=== PATIENT | female | born 1970 | race Caucasian/White ===

== ENCOUNTER → 2020-05-27 09:45 | Outpatient (BNVA) | payer MEDICARE, MEDICAID, SELFPAY | PROVIDERS: PCP Internal Medicine Geriatric Medicine; Referring Provider Internal Medicine Geriatric Medicine; Visit Provider Nurse Practitioner | DX: R10.13 Epigastric pain (principal); K75.81 Nonalcoholic steatohepatitis (NASH); K21.9 Gastro-esophageal reflux disease without esophagitis; A04.8 Other specified bacterial intestinal infections; B37.9 Candidiasis, unspecified | CPT/HCPCS: 99214 ==

== ENCOUNTER 2020-09-12 08:28 | Outpatient (REF) | payer OTHER, SELFPAY ==
--- NOTE | 2020-09-12 08:34 | US_ITS ---
EXAMINATION: US ABDOMEN LIMITED CLINICAL INFORMATION: Nonalcoholic steatohepatitis. COMPARISON: Ultrasound abdomen complete 01/15/2020. TECHNIQUE: Real-time imaging of the right upper quadrant abdominal viscera. FINDINGS: PANCREAS: The head and part of the body the pancreas is homogeneous in echotexture. Rest of pancreas is not visualized. LIVER: The liver is normal size and normal contour with increased echogenicity. There are areas of focal fatty. No focal mass or intrahepatic ductal dilatation seen. GALLBLADDER: There are no echogenic calculi or wall thickening. There is an echogenic nonmobile polyp measuring 0.3 x 0.3 cm. COMMON BILE DUCT: Normal in caliber measuring 0.3 cm in diameter. RIGHT KIDNEY: Normal. No hydronephrosis. No renal calculi or focal parenchymal lesions. The kidney measures 10.1 cm in maximum dimension. FREE FLUID: None. US/US abdomen limited IMPRESSION: Hepatic steatosis with areas of focal fatty sparing. No focal solid lesion seen. No change from previous study Small nonmobile gallbladder polyp, unchanged to previous study 01/15/2020.
== END 2020-09-12 08:29 | disposition home or self-care (01) ==
LOC: HO.US 08:28
PROVIDERS: PCP Internal Medicine Geriatric Medicine; Visit Provider Nurse Practitioner
DX: K75.81 Nonalcoholic steatohepatitis (NASH) (principal)
CPT/HCPCS: 76705

== ENCOUNTER → 2020-09-16 11:44 | Outpatient (BNVA) | payer OTHER, SELFPAY | PROVIDERS: PCP Internal Medicine Geriatric Medicine; Visit Provider Nurse Practitioner | CPT/HCPCS: Q3014 ==

== ENCOUNTER → 2020-10-24 10:52 | Outpatient (BNVA) | payer OTHER, SELFPAY | PROVIDERS: PCP Internal Medicine Geriatric Medicine; Visit Provider Nurse Practitioner | DX: Z13.89 Encounter for screening for other disorder (principal) | CPT/HCPCS: 99212 ==

== ENCOUNTER → 2020-11-07 10:59 | Outpatient (BNVA) | payer OTHER, SELFPAY | PROVIDERS: PCP Internal Medicine Geriatric Medicine; Visit Provider Nurse Practitioner | DX: R10.13 Epigastric pain (principal); K58.0 Irritable bowel syndrome with diarrhea; K75.81 Nonalcoholic steatohepatitis (NASH); K21.9 Gastro-esophageal reflux disease without esophagitis; A04.8 Other specified bacterial intestinal infections | CPT/HCPCS: Q3014 ==

== ENCOUNTER 2020-11-12 14:44 | Outpatient (REF) | payer OTHER, SELFPAY ==
[2020-11-12 17:02] LABS: MANUAL DIFF FLAG NO
[2020-11-12 17:09] LABS: Basophils Percent Auto 0.4 % (0-2); Eosinophils Absolute Auto 0.5 X10*3/uL (0.0-0.4); Eosinophils Percent Auto 4.4 % (0-4); Hematocrit 41.4 % (37-47); Hemoglobin 12.9 g/dl (12.0-16.0); Imm Gran Abs Auto 0.05 X10*3/uL (0.00-0.03); Imm Gran Pct Auto 0.5 % (0.0-0.4); Lymphocytes Absolute Auto 3.1 X10*3/uL (1.2-4.9); Lymphocytes Percent Auto 30.3 % (20-40); Mean Corpuscular HGB Conc 31.2 g/dl (31.0-35.0); Mean Corpuscular Volume 80.4 fL (80-98); Mean Platelet Volume 11.1 fL (9.4-12.3); Monocytes Absolute Auto 0.7 X10*3/uL (0.1-1.2); Neutrophils Absolute Auto 5.9 X10*3/uL (2.0-8.3); Neutrophils Percent Auto 57.4 % (45-73); Platelet Count 326 X10*3/uL (160-400); Red Blood Count 5.15 X10*6/uL (4.20-5.50); Red Cell Distribution Width 14.1 % (11.0-16.0); White Blood Count 10.3 X10*3/uL (4.8-10.8)
[2020-11-12 18:01] LABS: Alanine Aminotransferase 25 U/L (0-31); Albumin Level 4.5 g/dL (3.5-5.0); Alkaline Phosphatase 134 U/L (39-117); Amylase 55 U/L (28-100); Anion Gap 12 (12-20); Aspartate Amino Transferase 19 U/L (5-31); Bilirubin Total 0.4 mg/dL (0.0-1.0); Blood Urea Nitrogen 20 mg/dL (9-16); C Reactive Protein 0.19 mg/dL (< or = 0.50); Calcium 9.4 mg/dL (8.4-10.2); Carbon Dioxide 27 mmol/L (22-29); Chloride 106 mmol/L (96-108); Estimated Glomerular Filt Rate > 60; Glucose Random 113 mg/dL (60-115); Lipase 28 U/L (8-78); Potassium 4.2 mmol/L (3.3-5.1); Sodium 141 mmol/L (135-145); Total Protein 7.4 g/dL (6.5-8.0)
[2020-11-12 18:22] LABS: Vitamin D 25-OH Total 15.7 ng/mL (>30)
[2020-11-12 18:34] LABS: Folate 12.3 ng/mL (> or = 4.0); Vitamin B12 248 pg/mL (200-900)
[2020-11-12 19:58] LABS: Leukocytes Stool Qualitative NEGATIVE (NEGATIVE)
[2020-11-13 11:47] LABS: Alpha Fetoprotein 1.4 ng/mL
[2020-11-14 14:12] LABS: Immunoglobulin A 261 mg/dL (47-310)
[2020-11-14 20:18] LABS: Transglutaminase Ab IgG 2 U/mL; Transglutaminase IgA 1 U/mL
[2020-11-15 14:42] LABS: Gliadin Deamidated IgA Ab 4 Units; Gliadin Deamidated IgG Ab 1 Units
[2020-11-16 00:42] LABS: Zinc 91 mcg/dL (60-130)
== END 2020-11-12 14:45 | disposition home or self-care (01) ==
LOC: HO.LAB 14:44
PROVIDERS: Nurse Practitioner; PCP Internal Medicine Geriatric Medicine; Visit Provider Internal Medicine Gastroenterology
DX: K58.0 Irritable bowel syndrome with diarrhea (principal); M79.7 Fibromyalgia; K21.9 Gastro-esophageal reflux disease without esophagitis; A04.8 Other specified bacterial intestinal infections; K75.81 Nonalcoholic steatohepatitis (NASH); Z79.899 Other long term (current) drug therapy
CPT/HCPCS: 36415; 80053; 82105; 82150; 82306; 82607; 82746; 82784; 83516; 83690; 84443; 84630; 85025; 86140; 89055; 99212

== ENCOUNTER → 2020-11-13 08:04 | Outpatient (REF) | payer OTHER, SELFPAY ==
--- NOTE | ~2020-11-13 | NM_ITS ---
EXAMINATION: BILIARY TRACT IMAGING STUDY WITH CCK CLINICAL INFORMATION: Epigastric pain.. COMPARISON: No previous biliary scan is available for comparison. Abdominal ultrasound dated 09/12/2020 is available for comparison.. TECHNIQUE: Serial gamma scintillation camera images were obtained over the abdomen for a total observation period of 90 minutes following the intravenous administration of 5 mCi Tc-99m Mebrofenin. FINDINGS: There is good concentration of activity in the liver by 5 minutes post injection. Biliary activity is visualized by 10 minutes. The gallbladder is well visualized by 15 minutes. Small bowel is well visualized by 30 minutes. At 6 minutes post radiopharmaceutical injection, a 30-minute infusion of 1.1 micrograms Sincalide was then begun and an additional 40 minutes of images were obtained. There is good emptying of the gallbladder. By the end of the study there is good clearance of activity from the liver and visualization of diffuse small bowel activity. The calculated gallbladder ejection fraction is 71% (normal gallbladder ejection fraction is greater than 35%). NM/NM hepatobiliary w pharm IMPRESSION: Visualization of the gallbladder is evidence of a patent cystic duct and strong evidence against the diagnosis of acute cholecystitis. The common bile duct is patent. Gallbladder emptying and ejection fraction are normal. Liver function appears normal.
== END ==
LOC: HO.NUCMED 08:04
PROVIDERS: Visit Provider Nurse Practitioner
DX: R10.13 Epigastric pain (principal); K58.0 Irritable bowel syndrome with diarrhea
CPT/HCPCS: 78227; A9537

== ENCOUNTER 2020-11-29 08:02 | Day surgery (SDC) | payer OTHER, SELFPAY ==
[2020-11-29 09:03] VITALS: BMI 26.1
[2020-11-29 09:21] VITALS: BP 123/76; PULSE 69; RESP 16; TEMP 36.8; O2SAT 100
--- NOTE | 2020-11-29 09:25 | P.OP_ITS ---
Operative Note Operative Note Date of Service: 11/29/20 Narrative: Pre-op diagnosis: Colon cancer screening, Abdominal pain, chronic diarrhea Post-op diagnosis: other (Gastritis, colon polyps, diverticulosis.) Procedure: FLEXIBLE TRANSORAL UPPER GASTROINTESTINAL ENDOSCOPY WITH BIOPSY AND COLONOSCOPY TO CECUM WITH BIOPSIES AND SNARE POLYPECTOMY UPPER ENDOSCOPY Consent: Indications for the procedure and potential complications of bleeding, perforation, reaction to medications and missed diagnosis were discussed with the patient and informed consent was obtained. Instrument: Olympus GIF H 190 mid size upper endoscope Monitoring: Vital signs and clinical assessment, continuous EKG monitoring, Pulse oximetry, Carbon Dioxide monitoring and blood pressure monitoring were done throughout the procedure. Procedure: The patient was placed in the left lateral decubitis position and pre-procedure medications were administered and a bite block was placed. The endoscope was inserted into the mouth and advanced under direct vision to the third part of duodenum. A careful inspection was made as the upper endoscope was withdrawn including a retroflexed examination of the proximal stomach; Findings and interventions are described below. Findings: Larynx: Normal Esophagus: Tortuous esophagus with increased tertiary contractions without stricture or ring. GE junction at 35 cms. No esophagitis or Feldman's. Stomach: Moderate diffuse gastric erythema. Biopsies were obtained from the gastric body and antrum. Grade 2 flap valve on retroflexed examination of the cardia. Duodenum: Normal bulb and descending duodenum Intervention: Biopsies as noted above COLONOSCOPY PROCEDURE NOTE Consent: Indications for the procedure and potential complications of bleeding, perforation, reaction to medications and missed diagnosis were discussed with the patient and informed consent was obtained. Instrument: Olympus PCF H 190 L variable stiffness pediatric colonoscope Monitoring: Vital signs and clinical assessment, intermittent blood pressure monitoring, continuous EKG monitoring, Pulse oximetry and Carbon Dioxide monitoring were done throughout the procedure. Colon withdrawl time was 19 minutes. Procedure: The patient was placed in the left lateral decubitis position and pre-procedure medications were administered. After a digital rectal examination of the ano-rectum, the video colonoscope was inserted into the rectum and advanced through the colon to the cecum. The colonoscope was slowly withdrawn in a retrograde panoramic fashion and the colon mucosa was carefully examined including a retroflexed view of the rectum. Findings and interventions are described below. Procedure Difficulty: : Without difficulty. Colon was tortuous and there was spasm throughout the colon Findings: Terminal Ileum: Distal 15 cm was examined and appeared normal - random biopsies were obtained Cecum: Two 3-4 mm diminutive appearing polyps removed with the cold biopsy Ascending Colon: Moderate diverticulosis Transverse Colon: Moderate diverticulosis Descending Colon: Moderate diverticulosis Sigmoid Colon: Moderate diverticulosis Rectum: 7-8 mm sessile polyp removed with a cold snare Ano-rectum: Normal Colon preparation: Fair despite copious irrigation - pt only took 3 glasses of Miralax prep due to nausea Impression and Post Procedure Diagnosis: Endoscopy Findings: ESOPHAGUS: Tortuous esophagus with increased tertiary contractions without stricture or ring. GE junction at 35 cms. No esophagitis or Feldman's. STOMACH: Moderate diffuse gastric erythema. Biopsies were obtained from the gastric body and antrum. DUODENUM: Normal - biopsied to check for celiac sprue Colonoscopy Findings: Three small polyps removed. Random biopsies were obtained from the TI, right and left colon Moderate diverticulosis seen in the entire colon Plan: Await pathology results Patient has an appointment on 12/16/20 in the [facility] with Edilberto Sosa M.D.. Repeat Colonoscopy interval based on path results - in 3 years due to fair prep. Above findings were reviewed with the patient and Gastritis, colon polyps and diverticulosis handouts were given in the discharge area Surgeon: Edilberto Sosa MD Anesthesia: MAC (Kael Burgos CRNA) Yeast Fermentation Attendant: Robert Landeros Estimated blood loss (mL): 0 Pathology: other (A- SMALL BOWEL BXS R/O CELIAC B- GASTRIC ANTRUM BXS R/O H.PYLORI C- GASTRIC BODY BXS D- CECAL POLYPS E- TI BXS R/O CROHN'S F- RANDOM RIGHT SIDE COLON BXS R/O IBD / MICRO) Condition: stable Disposition: PACU
--- NOTE | 2020-11-29 09:25 | MHC.SHP ---
Pre-Procedural Eval Section A The patient is an INPATIENT: No Changes since office visit: Yes Patient answered all questions; No Cold of Flu in the past 2 weeks, No New Medical Problems and No Changes in Medication The History & Physical has been completed within 30 days and I have reviewed it.: Yes Section B Chief Complaint: epigastric pain Allergies: Allergies Allergy/AdvReac Type Severity Reaction Status Date / Time From COMPAZINE AdvReac Severe AGITATION Uncoded 04/25/20 16:11 - MAKES ME FEEL CRAZY Plan I have reviewed the history and physical and performed a pertinent physical examination on my patient. No changes have occurred unless specified.
--- NOTE | 2020-11-29 09:31 | HO.ANESPROP2 ---
[facility] Active Problems Active Problems: All Active Problems (Updated 11/22/20 @ 11:44 by Edilberto Sosa MD) Vitamin D deficiency (Acute) Epigastric pain (Acute) Diabetes (Acute) Irritable bowel syndrome with diarrhea (Acute) Tabatha albicans infection (Acute) Elevated antinuclear antibody (GOLDIE) level (Acute) ACKERMAN (nonalcoholic steatohepatitis) (Acute) GERD (gastroesophageal reflux disease) (Acute) H. pylori infection (Acute) Past Medical History Medical History Epigastric pain Family History Family History Mother HTN (hypertension) Heart attack Stroke Diabetes Father Heart attack Maternal Grandmother Asthma Surgical History Surgical History History of esophagogastroduodenoscopy (EGD) History of hysterectomy Hx of colonoscopy Social History Social History Household Members: Children Alcohol intake: current Alcohol intake frequency: holidays/special occasions only Smoking Status: Former smoker Smoked in Last 30 Days: No Use of substances other than those prescribed or required for medical reasons: Yes Substance Use Type: Marijuana Advance Directives: No Advance Directives Information Provided: Yes Recently lost weight without trying: Yes Current occupational status: employed 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 Allergies Allergy/AdvReac Type Severity Reaction Status Date / Time From TerapioAZINE AdvReac Severe AGITATION Uncoded 04/25/20 16:11 - MAKES ME FEEL CRAZY Active Medications: Current Medications Generic Name Dose Route Start Last Admin Trade Name Rubenq PRN Reason Stop Dose Admin Lactated Ringer's 1,000 mls @ 50 mls/hr 11/28/20 07:30 Lr IV .Q20H CHINEDU Home Medications Medication Instructions Recorded Confirmed Last Taken Type clonazepam 1 mg tablet 1 mg PO BID 10/24/20 11/12/20 11/29/20 History glimepiride 2 mg tablet 2 mg PO DAILY 10/24/20 11/12/20 Unknown History zolpidem 10 mg tablet 10 mg PO BEDTIME PRN 10/24/20 11/12/20 Unknown History blood sugar diagnostic #10 ea 11/07/20 11/12/20 Unknown History blood-glucose meter #1 ea 11/07/20 11/12/20 Unknown History fluconazole 150 mg tablet 150 mg PO QWEEK 11/07/20 11/12/20 Unknown History gabapentin 400 mg capsule 800 mg PO TID 11/07/20 11/12/20 Unknown History lancets 28 gauge #100 ea 11/07/20 11/12/20 Unknown History lisinopril 10 mg tablet 10 mg PO DAILY 11/07/20 11/12/20 Unknown History quetiapine 25 mg tablet 25 mg PO BEDTIME 11/07/20 11/12/20 Unknown History Exam Exam Date and Time: November 29, 2020930 Height,Weight and Vital Signs: Height 4 ft 10 in Weight 56.699 kg Last Vital Signs Temp 98.3 F 11/29/20 09:21 Pulse 69 11/29/20 09:21 Resp 16 11/29/20 09:21 BP 123/76 11/29/20 09:21 Pulse Ox 100 11/29/20 09:21 Airway Mallampati Class: II TM Dist: >3cm Neck ROM: Full
[2020-11-29 09:33] LABS: Glucose, Whole Blood 81 mg/dL (60-115)
[2020-11-29] MEDS: Sodium Phosphate,Mono-Dibasic 133 ML ENEMA PR (09:36)
--- NOTE | 2020-11-29 09:36 | PC.NURSE ---
ying fleet enema well. laying on left side. aware of plan of care.
--- NOTE | 2020-11-29 09:46 | PC.NURSE ---
fecal output was yellow but not completely transparent.
[2020-11-29 10:45] VITALS: BP 100/66; PULSE 72; RESP 16; TEMP 36.1; O2SAT 100
[2020-11-29 11:00] VITALS: BP 123/79; PULSE 60; RESP 18; O2SAT 98
[2020-11-29 11:15] VITALS: BP 110/67; PULSE 61; RESP 18; TEMP 36.6; O2SAT 98
[2020-11-29 11:31] VITALS: BP 107/80; PULSE 60; RESP 18; O2SAT 98
== END 2020-11-29 12:56 | disposition home or self-care (01) ==
LOC: HO.SSS 08:03
PROVIDERS: PCP Internal Medicine Geriatric Medicine; Visit Provider Internal Medicine Gastroenterology
PROC: (CPT 45385; principal; 2020-11-29 09:30)
DX: Z12.11 Encounter for screening for malignant neoplasm of colon (principal); K63.5 Polyp of colon; K62.1 Rectal polyp; K57.30 Diverticulosis of large intestine without perforation or abscess without bleeding; K29.50 Unspecified chronic gastritis without bleeding; B96.81 Helicobacter pylori [H. pylori] as the cause of diseases classified elsewhere; K22.8 Other specified diseases of esophagus; F12.90 Cannabis use, unspecified, uncomplicated; Z79.899 Other long term (current) drug therapy; Z88.8 Allergy status to other drugs, medicaments and biological substances; Z87.891 Personal history of nicotine dependence
CPT/HCPCS: 45385; 45380; 43239; 82947; 88305; 88342

== ENCOUNTER → 2020-12-16 09:42 | Outpatient (BNVA) | payer OTHER, SELFPAY | PROVIDERS: PCP Internal Medicine Geriatric Medicine; Visit Provider Internal Medicine Gastroenterology | CPT/HCPCS: Q3014 ==

== ENCOUNTER → 2021-02-24 13:22 | Outpatient (BNVA) | payer OTHER, SELFPAY | PROVIDERS: Visit Provider Internal Medicine Gastroenterology | DX: K58.0 Irritable bowel syndrome with diarrhea (principal); K21.9 Gastro-esophageal reflux disease without esophagitis; K75.81 Nonalcoholic steatohepatitis (NASH); A04.8 Other specified bacterial intestinal infections; E11.9 Type 2 diabetes mellitus without complications; R10.13 Epigastric pain | CPT/HCPCS: Q3014 ==

== ENCOUNTER 2021-06-23 07:48 | Outpatient (REF) | payer OTHER, SELFPAY ==
--- NOTE | ~2021-06-23 | CT_ITS ---
EXAMINATION: CT ABDOMEN AND PELVIS WITH CONTRAST CLINICAL INFORMATION: Epigastric pain COMPARISON: Previous abdominal ultrasound most recent September 2020 TECHNIQUE: Multidetector volumetric images were obtained from the superior aspect of the liver through the pubic symphysis following administration 85 mL of Omnipaque 350 intravenous contrast. Sagittal and coronal reformatted images were obtained on the technologist's workstation. Oral contrast: Yes This CT examination was performed using dose optimization techniques as appropriate, variously including the following: *Automated exposure control *Adjustment of mA and/or kV according to patient size (this includes techniques or standardized protocols for targeted exams where dose is matched to indication/reason for exam; i.e. extremities or head) *Use of iterative reconstruction technique DLP: 247 mGy-cm FINDINGS: LUNG BASES: The visualized lung bases are unremarkable. LIVER, GALLBLADDER, AND BILIARY TREE: The liver is normal in size and shape. The liver is low in attenuation suggestive of mild fatty infiltration. No focal hepatic lesion or biliary ductal dilatation is present. The gallbladder is unremarkable with no evidence of radiopaque gallstones, gallbladder wall thickening, or obvious pericholecystic inflammatory changes. PANCREAS: Unremarkable. SPLEEN: Unremarkable. ADRENAL GLANDS: Unremarkable. KIDNEYS AND URETERS: The kidneys are normal in size, shape, and attenuation. No hydronephrosis, hydroureter, or calculi seen. No perinephric stranding. BLADDER: Unremarkable. GASTROINTESTINAL TRACT: There is diverticulosis of the colon. The small and large bowel are otherwise unremarkable. The appendix is unremarkable. ABDOMINAL WALL: No significant hernia is appreciated. LYMPH NODES: Normal. VASCULAR: Unremarkable. PELVIC VISCERA: The uterus may been removed. No pelvic mass. OSSEOUS STRUCTURES: There is spondylolysis, grade 1 spondylolisthesis and degenerative disc disease at L5-S1. CT/CT abdomen pelvis w con IMPRESSION: Fatty liver. Mild diverticulosis. No evidence of diverticulitis. Spondylolysis, spondylolisthesis and degenerative disc disease at L5-S1.
[2021-06-23] MEDS: iohexoL 350 MG/ML 100 ML INFUS..BTL IV (08:56)
== END 2021-06-23 07:49 | disposition home or self-care (01) ==
LOC: HO.CT 07:48
PROVIDERS: PCP Internal Medicine Geriatric Medicine; Visit Provider Internal Medicine Gastroenterology
DX: R10.13 Epigastric pain (principal)
CPT/HCPCS: 74177; Q9967

== ENCOUNTER → 2021-06-25 07:53 | Outpatient (REF) | payer OTHER, SELFPAY ==
--- NOTE | ~2021-06-25 | NM_ITS ---
EXAMINATION: WI RADIONUCLIDE SOLID FOOD GASTRIC EMPTYING 4-HOUR STUDY CLINICAL INFORMATION: Epigastric pain. COMPARISON: None TECHNIQUE: A standard meal consisting of 4 oz of Egg Beaters brand tagged with 1 microcuries Tc-99m Sulfur Colloid, 8 oz water and 2 slices of toast with jelly was administered orally to the patient. Images were obtained using a dual head gamma camera in the anterior and posterior projections over of the stomach immediately post ingestion and at hourly intervals up to 4 hours post ingestion. The anterior and posterior counts at each time interval were averaged using the geometric mean and expressed as percentage of the immediate post ingestion counts. FINDINGS: There is good visualization of activity in the stomach immediately post ingestion. As the study progresses, there is good clearance of activity from the stomach and visualization of progressively increasing small bowel activity. By the end of the study, there is almost no retention noted in the stomach. Retention in the stomach at each time interval was: 1 hour 72% (normal 37%-90%) 2 hours 50% (normal 30%-60%) 3 hours 30% 4 hours 27% (normal 0%-10%) WI/WI gastric emptying study IMPRESSION: Abnormal mildly delayed 4-hour solid food gastric emptying study.
== END ==
LOC: HO.NUCMED 07:53
PROVIDERS: Visit Provider Internal Medicine Gastroenterology
DX: R10.13 Epigastric pain (principal)
CPT/HCPCS: 78264; A9541

== ENCOUNTER → 2021-07-16 12:28 | Outpatient (BNVA) | payer OTHER, SELFPAY | PROVIDERS: PCP Internal Medicine Geriatric Medicine; Visit Provider Internal Medicine Gastroenterology | DX: R19.7 Diarrhea, unspecified (principal) | CPT/HCPCS: 91110 ==

== ENCOUNTER → 2021-08-04 11:43 | Outpatient (BNVA) | payer OTHER, SELFPAY | PROVIDERS: PCP Internal Medicine Geriatric Medicine; Referring Provider Internal Medicine Geriatric Medicine; Visit Provider Internal Medicine Gastroenterology | DX: Z13.89 Encounter for screening for other disorder (principal) | CPT/HCPCS: 99212 ==

== ENCOUNTER 2021-09-10 12:12 | Outpatient (REF) | payer OTHER, SELFPAY ==
--- NOTE | ~2021-09-10 | XR_ITS ---
EXAMINATION: XR CHEST CLINICAL INFORMATION: Preprocedure COMPARISON: Previous chest x-ray April 2020 TECHNIQUE: 2 views of the chest were obtained. FINDINGS: No significant abnormality is noted involving the heart, lungs, mediastinum, bony thorax or soft tissues. XR/XR chest 2V IMPRESSION: Unremarkable examination.
== END 2021-09-10 12:13 | disposition home or self-care (01) ==
LOC: HO.XRAY 12:12
PROVIDERS: PCP Internal Medicine Geriatric Medicine; Visit Provider Internal Medicine Geriatric Medicine
DX: Z01.818 Encounter for other preprocedural examination (principal)
CPT/HCPCS: 71046

== ENCOUNTER 2022-04-20 17:02 | Outpatient (REF) | payer OTHER, SELFPAY ==
--- NOTE | ~2022-04-20 | XR_ITS ---
EXAMINATION: XR WRIST, RIGHT CLINICAL INFORMATION: Fracture COMPARISON: None TECHNIQUE: Four views of the right wrist. FINDINGS: There is a transverse comminuted nondisplaced slightly impacted fracture of the distal radius. This does not appear intra-articular with the radiocarpal joint. There is a minimally displaced ulnar styloid fracture. Carpal bones are normal. There is diffuse soft tissue swelling about the wrist. There is an overlying cast. XR/XR wrist RT 2V IMPRESSION: Right distal radius and ulnar styloid fractures.
== END 2022-04-20 17:03 | disposition home or self-care (01) ==
LOC: HO.XRAY 17:02
PROVIDERS: PCP Internal Medicine Geriatric Medicine; Visit Provider Internal Medicine Geriatric Medicine
DX: S62.101A Fracture of unspecified carpal bone, right wrist, initial encounter for closed fracture (principal)
CPT/HCPCS: 73100

== ENCOUNTER 2022-04-28 12:32 | Outpatient (REF) | payer OTHER, SELFPAY ==
--- NOTE | ~2022-04-28 | XR_ITS ---
EXAMINATION: XR WRIST, RIGHT CLINICAL INFORMATION: Fractures right wrist. Follow-up. COMPARISON: Radiographs right wrist 04/20/2022 TECHNIQUE: PA, lateral, and oblique views of the right wrist. FINDINGS: There is overlying fiberglass splint. Lateral view is slightly obliqued. Distal radial fracture and fracture base ulnar styloid are without significant change in alignment. No dislocation. No acute bony abnormality. XR/XR wrist RT min 3V IMPRESSION: No significant change in alignment fractures distal radius and ulnar styloid when compared with prior exam.
== END 2022-04-28 12:33 | disposition home or self-care (01) ==
LOC: HO.HOSX 12:32
PROVIDERS: Visit Provider Physician Assistant
DX: S52.501A Unspecified fracture of the lower end of right radius, initial encounter for closed fracture (principal); S52.611A Displaced fracture of right ulna styloid process, initial encounter for closed fracture
CPT/HCPCS: 29085; 73110; 99202

== ENCOUNTER 2022-05-19 | Outpatient (REF) | payer OTHER, SELFPAY ==
--- NOTE | ~2022-05-19 | XR_ITS ---
EXAMINATION: XR WRIST, RIGHT CLINICAL INFORMATION: Fracture COMPARISON: Previous x-ray April 2022 TECHNIQUE: PA, lateral, and oblique views of the right wrist. FINDINGS: There is no appreciable change in the transverse distal radius fracture. Alignment appears unchanged. There is a minimally displaced ulnar styloid fracture that is unchanged. Carpal bones are normal. There is soft tissue swelling of the distal wrist. XR/XR wrist RT min 3V IMPRESSION: No change in left distal radius and ulnar styloid fractures.
== END 2022-05-19 00:01 | disposition home or self-care (01) ==
LOC: HO.HOSX
PROVIDERS: Visit Provider Physician Assistant
DX: M25.531 Pain in right wrist (principal); S52.501A Unspecified fracture of the lower end of right radius, initial encounter for closed fracture; S52.611A Displaced fracture of right ulna styloid process, initial encounter for closed fracture; X58.XXXA Exposure to other specified factors, initial encounter; Y93.9 Activity, unspecified; Y92.9 Unspecified place or not applicable; Y99.8 Other external cause status
CPT/HCPCS: 29085; 73110; 99212

== ENCOUNTER 2022-06-09 | Outpatient (REF) | payer OTHER, SELFPAY ==
--- NOTE | ~2022-06-09 | XR_ITS ---
EXAMINATION: XR WRIST, RIGHT CLINICAL INFORMATION: Pain. COMPARISON: 04/20/2020 and 05/19/2022. TECHNIQUE: PA, lateral, and oblique views of the right wrist. FINDINGS: Once again fractures of the distal radius and ulna are seen here. There is some increased sclerosis of the transverse fracture of the distal radius. There is no change in fracture fragment position. Fracture lines are still well visible and this would include the ulnar styloid. Distracted fracture here showing no change in position. XR/XR wrist RT min 3V IMPRESSION: Once again fracture seen in the distal radius and ulna. No change in fracture fragment position. Fracture lines are still well visible.
== END 2022-06-09 00:01 | disposition home or self-care (01) ==
LOC: HO.HOSX
PROVIDERS: Visit Provider Physician Assistant
DX: S52.501A Unspecified fracture of the lower end of right radius, initial encounter for closed fracture (principal); S52.611A Displaced fracture of right ulna styloid process, initial encounter for closed fracture
CPT/HCPCS: 73110; 99212

== ENCOUNTER 2022-07-23 10:17 | Outpatient (REF) | payer OTHER, SELFPAY ==
--- NOTE | ~2022-07-23 | XR_ITS ---
EXAMINATION: XR WRIST, RIGHT CLINICAL INFORMATION: Pain right wrist COMPARISON: Right wrist 06/09/2022 and 05/04/2022. TECHNIQUE: PA, lateral, and oblique views of the right wrist. FINDINGS: There is a nondisplaced fracture distal radius and displaced distal ulnar fracture which are stable. There is some sclerosis along the distal radial fracture likely healing. No additional fracture seen. The carpal bones are intact. XR/XR wrist RT min 3V IMPRESSION: Slowly healing distal radial fracture. No significant change in the displaced ulnar styloid process fracture.
== END 2022-07-23 10:18 | disposition home or self-care (01) ==
LOC: HO.HOSX 10:17
PROVIDERS: Visit Provider Physician Assistant
DX: S52.501A Unspecified fracture of the lower end of right radius, initial encounter for closed fracture (principal); S52.611A Displaced fracture of right ulna styloid process, initial encounter for closed fracture
CPT/HCPCS: 73110; 99212

== ENCOUNTER 2022-09-01 10:06 | Outpatient (REF) | payer OTHER, SELFPAY | END 2022-09-01 10:07 | disposition home or self-care (01) | LOC: HO.HOSX 10:06 | PROVIDERS: Visit Provider Orthopaedic Surgery | DX: Z13.89 Encounter for screening for other disorder (principal) ==

== ENCOUNTER 2023-01-13 12:25 | Outpatient (REF) | payer OTHER, SELFPAY | END 2023-01-13 12:26 | disposition home or self-care (01) | LOC: HO.HOSX 12:25 | PROVIDERS: Visit Provider Orthopaedic Surgery | DX: S52.501A Unspecified fracture of the lower end of right radius, initial encounter for closed fracture (principal); S52.611A Displaced fracture of right ulna styloid process, initial encounter for closed fracture | CPT/HCPCS: 99212 ==

== ENCOUNTER 2023-02-19 15:50 | Outpatient (REF) | payer OTHER, SELFPAY | END 2023-02-19 15:51 | disposition home or self-care (01) | LOC: HO.HOSX 15:50 | PROVIDERS: Visit Provider Orthopaedic Surgery | DX: Z13.89 Encounter for screening for other disorder (principal) ==

== ENCOUNTER 2023-06-09 10:58 | Outpatient (REF) | payer OTHER, SELFPAY ==
--- NOTE | ~2023-06-09 | XR_ITS ---
EXAMINATION: XR WRIST, RIGHT CLINICAL INFORMATION: Pain COMPARISON: Right wrist radiograph from 07/10/2022 TECHNIQUE: PA, lateral, and oblique views of the right wrist. FINDINGS: Fracture of the distal radius is less evident with sclerosis along the fracture line. Ulnar styloid fracture fragment is less conspicuous though on lateral projection a 2 mm osseous fragment is noted dorsally which may represent sequela of fracture. Joint space alignment are otherwise maintained. Soft tissues are unremarkable. XR/XR wrist RT min 3V IMPRESSION: 1. Fracture of the distal radius is less evident with sclerosis along the fracture line. 2. Ulnar styloid fracture fragment is less conspicuous though on lateral projection a 2 mm osseous fragment is noted dorsally which may represent sequela of fracture.
== END 2023-06-09 10:59 | disposition home or self-care (01) ==
LOC: HO.HOSX 10:58
PROVIDERS: Visit Provider Orthopaedic Surgery
DX: M25.531 Pain in right wrist (principal); S52.501D Unspecified fracture of the lower end of right radius, subsequent encounter for closed fracture with routine healing; S52.611D Displaced fracture of right ulna styloid process, subsequent encounter for closed fracture with routine healing; M25.631 Stiffness of right wrist, not elsewhere classified; X58.XXXD Exposure to other specified factors, subsequent encounter
CPT/HCPCS: 73110; 99212

== ENCOUNTER 2023-06-09 11:05 | Outpatient (AMB) | payer OTHER, SELFPAY ==
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
[2023-06-09 11:15] VITALS: BMI 27.0
== END 2023-06-09 12:41 | disposition home or self-care (01) ==
PROVIDERS: Visit Provider Orthopaedic Surgery
DX: S52.501A Unspecified fracture of the lower end of right radius, initial encounter for closed fracture (principal); S52.611A Displaced fracture of right ulna styloid process, initial encounter for closed fracture; M25.631 Stiffness of right wrist, not elsewhere classified
CPT/HCPCS: 99213

== ENCOUNTER 2023-11-15 13:54 | Outpatient (REF) | payer OTHER, SELFPAY ==
[2023-11-15 16:27] LABS: Anion Gap 12 (12-20); Blood Urea Nitrogen 15 mg/dL (9-16); Calcium 9.6 mg/dL (8.4-10.2); Carbon Dioxide 27 mmol/L (22-29); Chloride 105 mmol/L (96-108); Estimated Glomerular Filt Rate > 60; Glucose Random 181 mg/dL (60-115); Potassium 3.8 mmol/L (3.3-5.1); Sodium 140 mmol/L (135-145)
[2023-11-15 16:51] LABS: Creatinine Urine 68.58 mg/dL; Microalbumin Urine < 5.0 mg/L
[2023-11-15 18:53] LABS: CT PCR NOT DETECTED (Not Detect.); NG PCR NOT DETECTED (Not Detect.)
[2023-11-16 09:18] LABS: HBsAGNum1 0.28 S/CO (0.00-0.99); HIV AB/AG Nonreactive (Nonreactive); HIV Num 1 0.06 S/CO (0.00-0.99); Hepatitis B Surface Antigen Negative (Negative); ~HepC Num1 0.09 S/CO (0.00-0.79); ~Hepatitis C Antibody Nonreactive (Nonreactive)
[2023-11-16 12:13] LABS: RPR Rapid Plasma Reagin NON-REACTIVE (NON-REACTIVE)
== END 2023-11-15 13:55 | disposition home or self-care (01) ==
LOC: HO.HHCL 13:54
PROVIDERS: Visit Provider Internal Medicine Geriatric Medicine
DX: E11.65 Type 2 diabetes mellitus with hyperglycemia (principal); Z11.3 Encounter for screening for infections with a predominantly sexual mode of transmission; Z11.59 Encounter for screening for other viral diseases; Z20.2 Contact with and (suspected) exposure to infections with a predominantly sexual mode of transmission
CPT/HCPCS: 0353U; 36415; 80048; 82570; 86592; 86803; 87340; 87389

== ENCOUNTER 2024-03-06 14:53 | Outpatient (REF) | payer OTHER, SELFPAY ==
[2024-03-06 16:30] LABS: Alanine Aminotransferase 20 U/L (0-31); Alkaline Phosphatase 97 U/L (39-117); Anion Gap 13 (12-20); Aspartate Amino Transferase 18 U/L (5-31); Bilirubin Total 0.2 mg/dL (0.0-1.0); Blood Urea Nitrogen 13 mg/dL (9-16); Calcium 9.2 mg/dL (8.4-10.2); Carbon Dioxide 23 mmol/L (22-29); Chloride 108 mmol/L (96-108); Estimated Glomerular Filt Rate > 60; Glucose Random 205 mg/dL (60-115); Potassium 3.8 mmol/L (3.3-5.1); Sodium 140 mmol/L (135-145); Total Protein 6.9 g/dL (6.5-8.0)
== END 2024-03-06 14:54 | disposition home or self-care (01) ==
LOC: HO.HHCL 14:53
PROVIDERS: Visit Provider Internal Medicine Geriatric Medicine
DX: R21 Rash and other nonspecific skin eruption (principal)
CPT/HCPCS: 36415; 80053

== ENCOUNTER 2024-10-16 12:43 | Outpatient (REF) | payer MEDICAID, SELFPAY ==
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
--- OUTSIDE RECORDS SUMMARY | 2024-10-16 14:13 | XMS_ITS | Encounter Summary ---
Author Organization [employer] Address [address] [facility] 7t [place] [address] Care Team Providers Care Juice Mixer Name Role Phone Name, Damian MASON Primary Care Provider [phone] Danny Overton Unavailable Unavailable Encounter Details Date Type Department Care Team (Late Contact Info) Description 10/14/2022 Orders Only [facility] MED & PEDS [address] [place] [address] Peg Schulz LPN Social History Tobacco Use Types Packs/Day Years Used Date Smoking Tobacco: Never Assessed Comments Unknown Sex and Gender Information Value Date Recorded Sex Assigned at Female 06/08/2022 10:17 AM EDT Legal Sex Female 10:17 AM EDT Gender Identity Female 06/08/2022 10:17 AM EDT Sexual Orientation Straight 06/08/2022 10 :17 AM EDT documented as of this encounter Plan of Treatment Upcoming Encounters Date Type Department Care Team (Late Contact Info) Description 11/02/2024 10:00 AM EDT Office Visit [facility] DENTAL [address] [place], [place] [phone] Negrito Romeo BDS [address] [place], [place] [phone] 12/19/2024 4:00 PM EDT Office Visit [facility] MEDICINE [address] [place], [place] [phone] Name, MD Damian [address] [place] [address] documented as of this encounter Visit Diagnoses Not on filedocumented in this encounter Additional Health Concerns Assessment Noted Time PHQ-9 Depression Total Score: 1 10/14/19 23 8:49 AM EST documented as of this encounter Care Teams Juice Mixer Relationship Specialty Start Date End Date Name, MD Damian [address] [place] [address] PCP - General Family Medicine 05/28/17 Danny Overton FNP [address] [place] [address] Nurse Practitioner Family Medicine 06/29/23 documented as of this encounter
--- OUTSIDE RECORDS SUMMARY | 2024-10-16 14:13 | XMS_ITS | Encounter Summary ---
Author Organization [employer] Address [address] [facility] [address] [place] [address] Care Team Providers Care Flux Plant Operator Name Role Phone Name, Damian MASON Primary Care Provider [phone] Danny Overton Unavailable Unavailable Reason for Visit * Reason Comments Med Refill Encounter Details Date Type Department Care Team (Late st Contact Info) Description 02/10/2024 Refill [facility] MED & PEDS [address] [place] [address] Danny Overton FNP Anxiety disorder, unspecified type Social History Tobacco Use Types Packs/Day Years Used Date Smoking Tobacco: Former Cigarettes Comments:Smokes marijuana Alcohol Use Standard Drinks/Week Comments Yes 0 (1 standard drink = 0.6 oz pur e alcohol) Depression Answer Date Recorded Patient Health Questionnaire-9 Score 9 01/11/2024 Patient Health Questionnaire-9 Score 9 01/11/2024 Last PHQ-9: Questionnaire Data Not on file 0 01/11/2024 Housing Stability Answer Date Recorded What is [...] Answer Date Recorded Patient Health Questionnaire-2 Score 2 01/11/2024 Comments Unknown Sex and Gender Information Value [...] Description 11/02/2024 10:00 AM EDT Office Visit [facility] DENTAL [address] [place] [address] Negrito Romeo BDS [address] [place] [address] 12/19/2024 4:00 PM EDT Office Visit [facility] MEDICINE [address] [place] [phone] Name, MD Damian [address] [place] [address] documented as of this encounter Visit Diagnoses Diagnosis Anxiety disorder, unspecified type documented in this encounter Additional Health Concerns Assessment Noted Time PHQ-9 Depression Total Score: 9 01/11/20 24 10:18 AM EDT documented as of this encounter Care Teams Flux Plant Operator Relationship Specialty Start Date End Date Name, MD Damian [address] [place] [address] PCP - General Family Medicine 05/28/17 Danny Overton FNP [address] [place] [phone] Nurse Practitioner Family Medicine 06/29/23 documented as of this encounter
--- OUTSIDE RECORDS SUMMARY | 2024-10-16 14:13 | XMS_ITS | Patient Health Record ---
Author Organization [facility] Address [address] [place] [phone] Support Name Relationship Address Phone no, no Emergency Contact [address] [place] [address] Tesha Díaz Guarantor Unknown [phone] Reason For Referral No Information Plan Of Treatment No Information Insurance Providers Payer Name Payer Address Payer Phone Subscriber Number Group Number Insured Name Patient Relationship to Insured Coverage Start Date Coverage End Date Medicare A NGS PPS UB [address] [address] [place], [place] [id number] Tesha Díaz Self - patient is the insured [facility] [address] [place] [address] Tesha Díaz Self - patient is the insured
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
--- OUTSIDE RECORDS SUMMARY | 2024-10-16 14:13 | XMS_ITS | Encounter Summary ---
Author Organization [employer] Address [address] [place] [address] [place] [address] Care Team Providers Care German Instructor Name Role Phone Name, Damian MASON Primary Care Provider Danny Overton Unavailable Unavailable Reason for Visit * Reason Comments Med Change Request Encounter Details Date Type Department Care Team (Late st Contact Info) Description 10/27/2022 Refill [facility] MEDICINE [address] [place] [address] [phone] Chelsi Kam FNP [address] [place] [address] [place] [address] Moderate persistent asthma without complication Social History Tobacco Use Types Packs/Day Years [...] Description 11/02/2024 10:00 AM EDT Office Visit [facility] DENTAL [address] [place] [phone] Negrito Romeo BDS [address] [place] [phone] 12/19/2024 4:00 PM EDT Office Visit [facility] MEDICINE [address] [place] [address] Name, MD Damian [address] [place] [address] documented as of this encounter Visit Diagnoses Diagnosis Moderate persistent asthma without complication documented in this encounter Additional Health Concerns Assessment Noted Time PHQ-9 Depression Total Score: 1 10/14/19 23 8:49 AM EST documented as of this encounter Care Teams German Instructor Relationship Specialty Start Date End Date Name, MD Damian [address] [place] [phone] PCP - General Family Medicine 05/28/17 Danny Overton FNP [address] [place] [phone] Nurse Practitioner Family Medicine 06/29/23 documented as of this encounter
--- OUTSIDE RECORDS SUMMARY | 2024-10-16 14:13 | XMS_ITS | Encounter Summary ---
Author Organization [facility] Address [address] [facility] 7t [place] [address] Care Team Providers Care Adult Caregiver Name Role Phone Name, Damian MASON Primary Care Provider [phone] Danny Overton Unavailable Unavailable Reason for Visit * Reason Comments Med Refill Encounter Details Date Type Department Care Team (Late st Contact Info) Description 07/14/2024 Refill [facility] MEDICINE [address] [place] [address] Rhona Strauss MD [address] [place] [address] High cholesterol Social History Tobacco Use Types Packs/Day Years Used Date Smoking Tobacco: Former Cigarettes Passive Smoke Exposure: Current Comments:Smokes marijuana Alcohol Use Standard Drinks/Week Comments Yes 0 (1 standard drink = 0.6 oz pur e alcohol) Alcohol Answer Date Recorded Frequency of Alcohol Consumption Not on file 02/28/2024 Average Number of Drinks Not on file 024 Frequency of Binge Drinking Not on file 02/07 Score 0 02/28/2024 Depression Answer Date Recorded Patient Health Questionnaire-9 Score 9 01/11/2024 Patient Health Questionnaire-9 Score 9 01/11/2024 Last PHQ-9: Questionnaire Data Not on file 0 01/11/2024 Housing Stability Answer Date Recorded What is your housing situation today? I have ligia bacon 02/28/[address] you li ve. Do you have problems with any of the following? None of the above 02/28/2024 Food Insecurity Answer Date Recorded Within the past 12 months, y ou worried that your food would run out before you got money to buy more: Never True 02/28/2024 Within the past 12 months,th e food you bought just didn't last and you didn't have enough money to get more: Never True Transportation Answer Date Recorded In the past 12 months, has l ack of transportation kept you from medical appts, meetings, work or from getting things needed for daily living? No 02/28/2024 Utilities Answer Date Recorded In the past 12 months, has t he electric, gas, oil or water company threatened to shut off services in your home? No 02/28/2024 Depression Answer Date Recorded Patient Health Questionnaire-2 Score 2 01/11/2024 Internet Access Answer Date Recorded Internet Access Q1 No 04/07/2024 Internet Access Q2 I do not want or need it 03/11 Comments Unknown Sex and Gender Information Value [...] Description 11/02/2024 10:00 AM EDT Office Visit [facility] [address] [place] [address] Negrito Romeo, BDS [address] [place] [address] 12/19/2024 4:00 PM EDT Office Visit [facility] MEDICINE [address] [place] [address] [phone] NameDamian MD [address] [place] [address] documented as of this encounter Visit Diagnoses Diagnosis High cholesterol Pure hypercholesterolemia documented in this encounter Additional Health Concerns Assessment Noted Time PHQ-9 Depression Total Score: 9 01/11/20 24 10:18 AM EDT documented as of this encounter Care Teams Adult Caregiver Relationship Specialty Start Date End Date Name, MD Damian [address] [place] [address] PCP - General Family Medicine 05/28/17 Danny Overton FNP [address] [place] [address] Nurse Practitioner Family Medicine 06/29/23 documented as of this encounter
--- OUTSIDE RECORDS SUMMARY | 2024-10-16 14:13 | XMS_ITS | Clinical Summary ---
Author Organization [employer] [facility] ity Address [address] [place] [address] Care Team Providers Care Credit Card Analyst Name Role Phone Name, Damian MASON Primary Care Provider [phone] Social History Tobacco Use Types Packs/Day Years Used Date Smoking Tobacco: Never Assessed Comments Unknown Sex and Gender Information Value Date Recorded Sex Assigned at Not on file Legal Sex Female 5:44 AM EST Gender Identity Not on file Sexual Orientation Not on file Plan of Treatment Health Maintenance Due Date Last Done Comments Breast Cancer Screening 1969 DTaP,Tdap,and Td Vaccines (1 - Tdap) 1988 Hepatitis B Vaccines (1 of 3 - 19+ 3-dose series) 1988 Cervical Cancer Screening: P ap Smear 1990 Pneumococcal Vaccine: 50+ Ye ars (1 of 1 - PCV) 12/14/2019 Zoster Vaccines (1 of 2) 12/14/2019 COVID-19 Vaccine (2023-2 5 season) 2024 Influenza Vaccine (#1) 2024 HIB Vaccines Aged Out No longer eligi ble based on patient's age to complete this topic HPV Vaccines Aged Out No longer eligi ble based on patient's age to complete this topic Hepatitis A Vaccines Aged Out No long er eligible based on patient's age to complete this topic IPV Vaccines Aged Out No longer eligi ble based on patient's age to complete this topic MMR Vaccines Aged Out No longer eligi ble based on patient's age to complete this topic Meningococcal ACWY Vaccine Aged Out N o longer eligible based on patient's age to complete this topic Meningococcal B Vacine Aged Out No lo nger eligible based on patient's age to complete this topic Pneumococcal Vaccine: Pediat rics (0 to 5 Years) and At-Risk Patients (6 to 64 Years) Aged Out No longer eligible b ased on patient's age to complete this topic RSV Immunization Patients Un shu 20 months Aged Out No longer eligible b ased on patient's age to complete this topic Varicella Vaccines Aged Out No longer eligible based on patient's age to complete this topic Care Teams Credit Card Analyst Relationship Specialty Start Date End Date Name, MD Damian [address] [place] [address] PCP - General Internal Medicine 05/27/20
--- OUTSIDE RECORDS SUMMARY | 2024-10-16 14:13 | XMS_ITS | Encounter Summary ---
Author Organization [employer] Address 75 [facility] 7t [place] [address] Care Team Providers Care Fire Services Plumber Name Role Phone Name, Damian MASON Primary Care Provider [phone] Danny Overton Unavailable Unavailable Encounter Details Date Type Department Care Team (Latest Contact Info) Description 03/10/2021 Abstract [facility] CONVERSIONS Dental, Provider, DDS Social History Tobacco Use Types Packs/Day Years [...] Description 11/02/2024 10:00 AM EDT Office Visit [facility] [address] [place] [address] Negrito Romeo, BDS [address] [place], [place] [phone] 12/19/2024 4:00 PM EDT Office Visit [facility] MEDICINE 230 [place], [place] [phone] Name, MD Damian [address] [place], [place] [phone] documented as of this encounter Visit Diagnoses Not on filedocumented in this encounter Care Teams Fire Services Plumber Relationship Specialty Start Date End Date Name, MD Damian 230 [place] [address] PCP - General Family Medicine 05/28/17 Danny Overton FNP 230 [place] [address] Nurse Practitioner Family Medicine 06/29/23 documented as of this encounter
--- OUTSIDE RECORDS SUMMARY | 2024-10-16 14:13 | XMS_ITS | Encounter Summary ---
Author Organization [employer] Address 75 [facility] 7t [place] [address] Care Team Providers Care In Room Dining Server Name Role Phone Name, Damian MASON Primary Care Provider [phone] Danny Overton Unavailable Unavailable Reason for Visit * Reason Comments Med Refill Encounter Details Date Type Department Care Team (Late st Contact Info) Description 11/21/2023 Refill [facility] MEDICINE [address] [place] [address] Danny Overton FNP Anxiety disorder, unspecified type [...] Description 11/02/2024 10:00 AM EDT Office Visit [facility] [address] [place] [address] Negrito Romeo BDS [address] [place] [address] 12/19/2024 4:00 PM EDT Office Visit [facility] MEDICINE [address] [place] [address] Name, MD Damian [address] [place] [address] documented as of this encounter Visit Diagnoses Diagnosis Anxiety disorder, unspecified type documented in this encounter Additional Health Concerns Assessment Noted Time PHQ-9 Depression Total Score: 18 024 10:21 AM EDT documented as of this encounter Care Teams In Room Dining Server Relationship Specialty Start Date End Date Name, MD Damian [address] [place] [address] PCP - General Family Medicine 05/28/17 Danny Overton FNP [address] [place] [address] Nurse Practitioner Family Medicine 06/29/23 documented as of this encounter
--- OUTSIDE RECORDS SUMMARY | 2024-10-16 14:13 | XMS_ITS | Encounter Summary ---
Author Organization [employer] Address [address] [facility] 7t [place] [address] Care Team Providers Care School Bus Driver/Teacher Assistant Name Role Phone Name, Damian MASON Primary Care Provider [phone] Danny Overton Unavailable Unavailable Reason for Visit * Reason Onset Date Comments Med Refill 10/13/2024 Encounter Details Date Type Department Care Team (Late st Contact Info) Description 10/13/2024 Telephone [facility] MEDICINE 230 [place], [place] [phone] Name, MD Damian [address] [place], [place] [phone] Med Refill Social History Tobacco Use Types Packs/Day Years [...] Telephone Encounter - Sharlene Donis RN - 10/13/2024 3:28 PM EST Per review of [facility] 10/13/24 pt last filled a 30 day supply of Clonazepam 1 mg on 09/19/24. T/C to pt for status check. Pt c/o headaches and elevated BP and increased anxiety. States she has no BP monitor. Pt reports that she was previously taking the clonazepam BID x 5 years. States that her psych prescriber retired and she now has no building materials sales attendant or counselor. Pt states that she recently did not get out bed for 2 days due to anxiety. States she has been crying and feeling negative. Denies self-harming thoughts now but reports that she was having self harming thoughts last week. Reports that she is taking Hydroxyzine, Ambien, gabapentin and Seroquel as rx. Reports that Hydroxyzine does not work unless alternated with Clonazepam. States that she is not able to sleep. Pt reports being out ofClonazepam x 3 days. Reports she has been taking Clonazepam daily as rx is questioning whether someone took her pills. Recommended that pt file a police report if she believes her meds were stolen. Advised request will be sent to pcp for review. Pt agrees to appt tomorrow for evaluation of reported symptoms. * Telephone Encounter - Franky Khan - 10/13/2024 1:42 PM EST TC from pt requesting medication refill. Medications needing refill : clonazePAM (KlonoPIN) 1 MG tablet To be sent to: [facility]/pharmacy #[id number] *pt currently out of medication. Pt requesting for it to be prescribed 2x a day documented in this encounter Plan of Treatment Upcoming Encounters Date Type Department Care Team (Late st Contact Info) Description 11/02/2024 10:00 AM EDT Office Visit [facility] [address] [place], [place] [phone] Negrito Romeo, BDS [address] [place], [place] [phone] 12/19/2024 4:00 PM EDT Office Visit [facility] MEDICINE [address] [place] [address] [phone] NameDamian MD [address] [place] [address] documented as of this encounter Visit Diagnoses Not on filedocumented in this encounter Additional Health Concerns Assessment Noted Time PHQ-9 Depression Total Score: 9 01/11/20 24 10:18 AM EDT documented as of this encounter Care Teams School Bus Driver/Teacher Assistant Relationship Specialty Start Date End Date Damian Bauman MD [address] [place] [phone] PCP - General Family Medicine 05/28/17 Danny Overton FNP [address] [place] [address] Nurse Practitioner Family Medicine 06/29/23 documented as of this encounter
--- OUTSIDE RECORDS SUMMARY | 2024-10-16 14:13 | XMS_ITS | Encounter Summary ---
Author Organization [employer] Address 75 [facility] 7t [place] [address] Care Team Providers Care Fish Trapper Name Role Phone Name, Damian MASON Primary Care Provider [phone] Danny Overton Unavailable Unavailable Encounter Details Date Type Department Care Team (Latest Contact Info) Description 06/18/2022 Abstract [facility] CON[facility] Dental, Provider, DDS Social History Tobacco [...] Description 11/02/2024 10:00 AM EDT Office Visit [facility] [address] [place] [address] Negrito Romeo, BDS [address] [place], [place] [phone] 12/19/2024 4:00 PM EDT Office Visit [facility] MEDICINE [address] [place], [place] [phone] Name, MD Damian [address] [place], [place] [phone] documented as of this encounter Visit Diagnoses Not on filedocumented in this encounter Care Teams Fish Trapper Relationship Specialty Start Date End Date Name, MD Damian 230 [place] [address] PCP - General Family Medicine 05/28/17 Danny Overton FNP 230 [place] [address] Nurse Practitioner Family Medicine 06/29/23 documented as of this encounter
--- OUTSIDE RECORDS SUMMARY | 2024-10-16 14:13 | XMS_ITS | Encounter Summary ---
Author Organization [employer] Address [address] [facility] 7t [place] [address] Care Team Providers Care It Risk And Assurance Manager Name Role Phone Name, Damian MASON Primary Care Provider [phone] Danny Overton Unavailable Unavailable Reason for Visit * Reason Onset Date Comments Med Refill 02/09/2024 PATIENT WALKED I N REQUESTING MED REFILL FOR INHALER ALBUTEROL PATIENT STATED SHE NEEDS IT Encounter Details Date Type Department Care Team (Late st Contact Info) Description 02/09/2024 Telephone [facility] MEDICINE [address] [place], [place] [phone] Name, MD Damian [address] [place], [place] [phone] Med Refill (PATIENT WALKED IN REQUESTING MED REFILL FOR INHALER ALBUTEROL PATIENT STATED SHE NEEDS IT ) Social History Tobacco Use Types Packs/Day Years [...] the past 12 months, has t he [employer], gas, oil or water [employer] threatened to shut off services in your [...] encounter Miscellaneous Notes * Telephone Encounter - Kashif Sanchez RN - 02/15/2024 9:00 AM EDT T/C to pt. On [phone] to inform that medication was sent to pharmacy, no answer. LVM to call back on [phone]. * Telephone Encounter - Nicole Israel - 02/14/2024 11:46 AM EDT PATIENT WALKED IN REQUESTING MED REFILL FOR INHALER ALBUTEROL PATIENT STATED SHE NEEDS IT * Telephone Encounter - Peg Schulz LPN - 02/09/2024 11:44 AM EDT Medication pended to PCP. * Telephone Encounter - Amelia Vazquez - 02/09/2024 11:37 AM EDT TC from pt requesting medication refill. Medications needing refill : gabapentin (Neurontin) 400 MG capsule To be sent to: [facility]/pharmacy #[id number] - [address] documented in this encounter Plan of Treatment Upcoming Encounters Date Type Department Care Team (Late st Contact Info) Description 11/02/2024 10:00 AM EDT Office Visit [facility] [address] [place], [place] [phone] Negrito Romeo, BDS 91 [place], [place] [phone] 12/19/2024 4:00 PM EDT Office Visit [facility] MEDICINE [address] [place] [address] Name, MD Damian [address] [place] [address] documented as of this encounter Visit Diagnoses Not on filedocumented in this encounter Additional Health Concerns Assessment Noted Time PHQ-9 Depression Total Score: 9 01/11/20 24 10:18 AM EDT documented as of this encounter Care Teams It Risk And Assurance Manager Relationship Specialty Start Date End Date Name, MD Damian [address] [place] [address] PCP - General Family Medicine 05/28/17 Danny Overton FNP [address] [place] [address] Nurse Practitioner Family Medicine 06/29/23 documented as of this encounter
--- OUTSIDE RECORDS SUMMARY | 2024-10-16 14:13 | XMS_ITS | Encounter Summary ---
Author Organization [employer] Address [address] [facility] 7t [place] [address] Care Team Providers Care Passport Support Manager Name Role Phone Name, Damian MASON Primary Care Provider [phone] Danny Overton Unavailable Unavailable Reason for Visit * Reason Comments Headache Anxiety Encounter Details Date Type Department Care Team (Late st Contact Info) Description 10/14/2024 9:20 AM EST Office Visit [facility] [address] [place], [place] [phone] Name, MD Damian [address] [place], [place] [phone] Essential hypertension (Primary Dx); Anxiety disorder, unspecified type Social History Tobacco [...] your housing situation today? I have ligia abcon 02/28/[address] you li [...] AM EDT documented as of this encounter Last Filed Vital Signs Vital Sign Reading Time Taken Comments Blood Pressure 165/118 10/14/2024 9:02 AM EST Pulse 107 10/14/2024 9:02 AM EST Temperature 36.9 ??C (98.5 ??F) 10/14/2024 9:02 AM ES T Respiratory Rate - - Oxygen Saturation 97% 10/14/2024 9:02 AM EST Inhaled Oxygen Concentration - - Weight 55.4 kg (122 lb 2 oz) 10/14/2024 9:02 AM EST Height 147.3 cm (4' 9.98 ) 10/14/2024 9:02 AM ES T Body Mass Index 25.54 10/14/2024 9:02 AM EST documented in this encounter Progress Notes * Damian Bauman, - 10/14/2024 9:20 AM EST Subjective Patient ID: Tesha Díaz is a 53 y.o. female who presents for Headache and Anxiety. Patient comes for a sick visit. The patient tells me that she has been very anxious. Anxiety has been exacerbated in the past few days because her son moved in with her and her son has been struggling with substance abuse. The patient has underlying history of depression and anxiety. She is a former cocaine user. She has not used illicits in about 6 years. Her BP has been running high at home. She has not been checking her blood sugars often. Review of Systems Constitutional: Negative for chills and fever. HENT: Negative for sore throat. Respiratory: Negative for cough, shortness of breath and wheezing. Cardiovascular: Negative for chest pain, palpitations and leg swelling. Gastrointestinal: Negative for abdominal pain. Musculoskeletal: Occasional right wrist pain. Psychiatric/Behavioral: The patient is nervous/anxious. Visit Vitals BP (!) 165/118 (BP Location: Left arm, Patient Position: Sitting, BP Cuff Size: Adult) Pulse 107 Temp 98.5 ??F (36.9 ??C) (Temporal) Ht 4' 9.98 (1.473 m) Wt 122 lb 2 oz (55.4 kg) SpO2 97% BMI 25.54 kg/m?? Smoking Status Former BSA 1.51 m?? Objective Physical Exam Constitutional: Appearance: Normal appearance. Cardiovascular: Rate and Rhythm: Normal rate and regular rhythm. Heart sounds: No murmur heard. No gallop. Pulmonary: Effort: Pulmonary effort is normal. No respiratory distress. Breath sounds: Normal breath sounds. No wheezing. Musculoskeletal: General: No swelling. Right lower leg: No edema. Left lower leg: No edema. Neurological: Mental Status: She is alert. Assessment/Plan Diagnoses and all orders for this visit: Essential hypertension Comments: I recommended to increase amlodipine to 10 mg. She is reminded to go for the fasting blood work ordered at her previous visit. Anxiety disorder, unspecified type Comments: Continue current dose of Seroquel, hydroxyzine, Ambien at bedtime. I will increase her clonazepam to twice a day. The patient is on a waiting list for therapist and psychiatrist. She is not suicidal. Other orders - amLODIPine (Norvasc) 10 MG tablet; Take 1 tablet (10 mg) by mouth Once per day. - clonazePAM (KlonoPIN) 1 MG tablet; Take 1 tablet (1 mg) by mouth 2 times daily for 14 days. documented in this encounter Plan of Treatment Upcoming Encounters Date Type Department Care Team (Late st Contact Info) Description 11/02/2024 10:00 AM EDT Office Visit [facility] [address] [place], [place] [phone] Negrito Romeo, BDS 91 [place], [place] [phone] 12/19/2024 4:00 PM EDT Office Visit [facility] MEDICINE [address] [place] [address] Damian Bauman MD [address] [place] [address] documented as of this encounter Visit Diagnoses Diagnosis Essential hypertension- Primary Unspecified essential hypertension Anxiety disorder, unspecified type documented in this encounter Additional Health Concerns Assessment Noted Time PHQ-9 Depression Total Score: 9 01/11/20 24 10:18 AM EDT documented as of this encounter Care Teams Passport Support Manager Relationship Specialty Start Date End Date Name, MD Damian [address] [place] [id number] PCP - General Family Medicine 05/28/17 Danny Overton FNP [address] [place] [address] Nurse Practitioner Family Medicine 06/29/23 documented as of this encounter
--- OUTSIDE RECORDS SUMMARY | 2024-10-16 14:13 | XMS_ITS | Clinical Summary ---
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 [facility] Hemoglobin A1C 9.7(A) 4.0 - 6.0 % QC Media Lot # [id number] Lot# Expiration Date [id number] Blood 09/19/2024 4:36 PM EST us Damian Bauman MD POINT OF CARE TEST ENTER/EDIT OR DERABLES Final Result * (ABNORMAL) POCT Glucose (09/19/2024 4:32 PM EST) Pathologist [facility] Glucose Blood, POC 250(A) 60 - 200 mg/dL QC Media Lot # [id number] Lot# Expiration Date [id number] Blood Capillary blood specimen / Unknown 09/19/2024 4:32 PM EST Damian Bauman MD POINT OF CARE TEST ENTER/EDIT OR DERABLES Final Result * Hepatitis C Ab (11/15/2023 2:00 PM EDT) Pathologist [facility] Hepatitis C Antibody Nonreactive Nonreactive [facility] Comment:Antibodies to HCV no t detected; does not exclude early acuteHCV infection. Blood Venous blood specimen / Unknown 11/15/2023 2:00 PM EDT 11/15/2023 4:10 PM EDT Damian Bauman MD LAB BLOOD ORDERABLES Final Resul t Performing Organization Address City/[facility]/ZIP Co de Phone Number [facility] [address] [place] [phone] * HIV-1/2 Antigen and Antibodies, Fourth Generation, with Reflexes (11/15/2023 2:00 PM EDT) HIV AB/AG Nonreactive Nonreactive [facility] Comment:HIV-1 p24 Ag and/or HIV-1/HIV-2 Ab not detected.A test result that is nonreactive does not exclude thepossibility of exposure to or infection with HIV-1 and/orHIV-2. Nonreactive results in this assay for individualswith prior exposure to HIV-1 and/or HIV-2 may be due toantigen and antibody levels that are below the limit ofdetection of this assay.The [email or web address] HIV Ag/Ab Combo assay result andsupplemental assay results should be interpreted inconjunction with the patient's clinical presentation,history and other laboratory results. If the results areinconsistent with clinical evidence, additional testing issuggested to confirm the result. Blood Venous blood specimen / Unknown 11/15/2023 2:00 PM EDT 11/15/2023 4:10 PM EDT us Damian Bauman MD LAB BLOOD ORDERABLES Final Resul t Performing Organization Address City/[facility]/ZIP Co de Phone Number [facility] [address] [place] [phone] * Albumin, Random Urine W/Creatinine (11/15/2023 1:58 PM EDT) Creatinine, Urine 68.58 mg/dL [facility] Microalbumin Urine <5.0 mg/L [facility] Microalbum Creatinine Ratio Ur TNP <30 ug/mg cr [facility] Comment:Unable to calculate albumin/creatinine ratio due to lowmicroalbumin or creatinine result. Urine (Urine, Random) 11/15/2023 1:58 PM EDT 11/15/2023 4:01 PM EDT us Damian Bauman MD LAB URINE ORDERABLES Final Resul t Performing Organization Address [facility]/ZIP Co de Phone Number [facility] [address] [place] [address] [phone] * LIPID PANEL, STANDARD (07/08/2021 2:00 PM EST) Pathologist [facility] Chol/HDLC Ratio 3.2 <5.0 (calc) [facility] Cholesterol, Total 167 <200 mg/dL [facility] HDL Cholesterol 53 > OR = 50 mg/dL [facility] LDL Cholesterol 91 mg/dL (calc) [facility] Comment: Reference range: <100 ?? Desirable range <100 mg/dL for primary prevention; ?? <70 mg/dL for patients with CHD or diabetic patients ?? with > or = 2 CHD risk factors. ?? LDL-C is now calculated using the Katelynn ?? calculation, which is a validated novel method providing ?? better accuracy than the Friedewald equation in the ?? estimation of LDL-C. ?? Phillip HALL et al. JODY. 2013;310(19): 6720-3020 ?? (http://education.iMOSPHERE/faq/FDY643) Non-HDL Cholesterol 114 <130 mg/dL (calc) [facility] Comment: For patients with diabetes plus 1 major ASCVD risk ?? factor, treating to a non-HDL-C goal of <100 mg/dL ?? (LDL-C of <70 mg/dL) is considered a therapeutic ?? option. Triglycerides 124 <150 mg/dL [facility] 07/08/2021 2:00 PM EST us Damian Bauman MD LAB BLOOD ORDERABLES Final Resul t Performing Organization Address [facility] Co de Phone Number [facility] [address] [place] [address], * THINPREP TIS PAP AND HPV mRNA E6/E7 REFLEX HPV 16,18/45 (07/01/2021 2:47 PM EST) Clinical Information: Z124 [facility] COMMENT SEE COMMENT [facility] Comment: EXPLANATORY NOTE: ? The Pap is a screening test for cervical cancer. It is ?? not a diagnostic test and is subject to false negative ?? and false positive results. It is most reliable when a ?? satisfactory sample, regularly obtained, is submitted ?? with relevant clinical findings and history, and when ?? the Pap result is evaluated along with historic and ?? current clinical information. ?? COMMENT: This Pap test has been evaluated with computer assisted technology. [facility] Cast Iron Drain Pipe Layer: SEE COMMENT [facility] Comment: CXP, CT(ASCP) CT screening location: [address] ??[address] HPV nRNA E6/E7 Not Detected Not Detected [facility] Comment: Methodology: Public Works Inspector-Mediated Amplification This assay detects E6/E7 viral messenger RNA (mRNA) from 14 high-risk HPV types (16,18,31,33,35,39,45,51,52,56,58,59,66,68). ? The analytical performance characteristics of this assay have been determined by [employer]. The modifications have not been cleared or approved by the FDA. This assay has been validated pursuant to the CLIA regulations and is used for clinical purposes. ?? For additional information, please refer to http://education.Smartling/faq/DZF551i5 (This link if provided for information/ educational purposes only.) Interpretation/Re sult: Negative for intraepithelial lesion or malignancy. [facility] LMP: NONE [facility] Prev. BX: NONE [facility] Prev. PAP: NONE [facility] SOURCE: Cervix [facility] Statement Of Adequacy: SEE COMMENT [facility] Comment: Satisfactory for evaluation. Endocervical/transformation zone component absent. Age and/or menstrual status not provided 07/01/2021 2:47 PM EST us Kizzy Brown CNM LAB PATHOLOGY ORDERABLES Final Result [facility] [address] [place] [address], * Colonoscopy (11/29/2020 11:46 AM EDT) Colonoscopy Normal Normal Comment:Repeat in 3 years du e to fair prep Narrative Tamie Salazar - 11/29/2020 11:46 AM EDT Recommended 3 years due to fair prep Historical Provider HEALTH MAINTENANCE Edited Result - Final * 3D DIGITAL LUIS SCR MAMMO 1 (05/03/2020 4:04 PM EDT) Anatomical Region Laterality Modality Breast Bilateral Mammography 05/03/2020 4:04 PM EDT Narrative 05/03/2020 4:05 PM EDT Refer to the Notes tab for result details [facility] Procedure: 3D DIGITAL LUIS SCR MAMMO 1 Procedure Note Provider, Santos, - 10/31/2022 Refer to the Notes tab for result details [facility] Procedure: 3D DIGITAL LUIS SCR MAMMO 1 Damian Name IMG BI PROCEDURES Final Result from Last 3 Months or Most Recently Relevant to Health Maintenance [facility] STAND ADULT Care Teams Insecticide Sprayer Relationship Specialty Start Date End Date Name, MD Damian [address] [place] [address] PCP - General Family Medicine 05/28/17 Danny Overton FNP [address] [place] [address] Nurse Practitioner Family Medicine 06/29/23
--- OUTSIDE RECORDS SUMMARY | 2024-10-16 14:13 | XMS_ITS | Encounter Summary ---
Author Organization [employer] Address [address] [place] [address] Care Team Providers Care Internal Combustion Engine Assembler Name Role Phone Name, Damian MASON Primary Care Provider [phone] Danny Overton Unavailable Unavailable Reason for Visit * Reason Comments Med Change Request Encounter Details Date Type Department Care Team ([facility] st Contact Info) Description 12/09/2023 [facility]ill [facility] [address] [place] [address] Danny Overton FNP Anxiety disorder, unspecified type [...] Description 11/02/2024 10:00 AM EDT Office Visit [facility] [address] [place] [address] Negrito Romeo BDS [address] [place] [address] 12/19/2024 4:00 PM EDT Office Visit [facility] MED[facility] [address] [place] [address] Name, MD Damian [address] [place] [address] documented as of this encounter Visit Diagnoses Diagnosis Anxiety disorder, unspecified type documented in this encounter Additional Health Concerns Assessment Noted Time PHQ-9 Depression Total Score: 18 024 10:21 AM EDT documented as of this encounter Care Teams Internal Combustion Engine Assembler Relationship Specialty Start Date End Date Name, MD Damian [address] [place] [address] PCP - General Family Medicine 05/28/17 Danny Overton FNP [address] [place] [address] Nurse Practitioner Family Medicine 06/29/23 documented as of this encounter
--- OUTSIDE RECORDS SUMMARY | 2024-10-16 14:14 | XMS_ITS | Encounter Summary ---
Author Organization [employer] Address [address] [facility] 7t [place] [address] Care Team Providers Care Tong Carrier Name Role Phone Name, Damian MASON Primary Care Provider [phone] Danny Overton Unavailable Unavailable Reason for Visit * Reason Comments Filling Encounter Details Date Type Department Care Team (Late st Contact Info) Description 10/16/2024 11:00 AM EDT Office Visit [facility] [address] [place], [place] [phone] Negrito Romeo BDRavi [address] [place], [place] [phone] Social History Tobacco Use Types Packs/Day Years [...] 10:00 AM EDT Office Visit [facility] [address] [place] [address] Negrito Romeo BDS [address] [place] [address] 12/19/2024 4:00 PM EDT Office Visit [facility] [address] [place] [address] Name, MD Damian [address] [place] [address] Scheduled Orders Name Type Priority Associated Diagnoses Orde r Schedule 8 8 CROWN - P[place]EL[place]/CERAMIC Dental Routine 1 Occurrences starting 10/16/2024 9 9 CR[facility] - P[place]CELAIN/CERAMIC Dental Routine 1 Occurrences starting 10/16/2024 8 8 CROWN PREP Dental Routine 1 Occurren vickie starting 10/16/2024 9 9 CROWN PREP Dental Routine 1 Occurren vickie starting 10/16/2024 CASE PRESENTATION, DETAILED AND EXTENSIVE TREATMENT PLANNING Dental Routine 1 Occurrences starting 10/16/2024 10 10 CROWN PREP Dental Routine 1 Occurr ences starting 10/16/2024 10 10 CR[facility] - [place]EL[place]/CERAMIC Dental Routine 1 Occurrences starting 10/16/2024 documented as of this encounter Visit Diagnoses Not on filedocumented in this encounter Additional Health Concerns Assessment Noted Time PHQ-9 Depression Total Score: 9 01/11/20 24 10:18 AM EDT documented as of this encounter Care Teams Tong Carrier Relationship Specialty Start Date End Date Name, MD Damian [address] [place] [address] PCP - General Family Medicine 05/28/17 Danny Overton FNP [address] [place] [address] Nurse Practitioner Family Medicine 06/29/23 documented as of this encounter
--- OUTSIDE RECORDS SUMMARY | 2024-10-16 14:14 | XMS_ITS | Encounter Summary ---
Author Organization [employer] Address [address] [facility] 7t [place] [address] Care Team Providers Care Osd Clerk Name Role Phone Name, Damian MASON Primary Care Provider [phone] Danny Overton Unavailable Unavailable Encounter Details Date Type Department Care Team ([facility] Contact Info) Description 01/07/2023 Abstract [facility] [address] [place] [address] Name, MD Damian [address] [place] [address] Social History Tobacco Use Types Packs/Day Years Used Date Smoking Tobacco: Every Day Cigarettes Comments:Smokes marijuana Alcohol Use Standard Drinks/Week Comments Yes 0 (1 standard drink = 0.6 oz pur e alcohol) Comments Unknown Sex and Gender Information Value Date Recorded Sex Assigned at Female 06/08/2022 10:17 AM EDT Legal Sex Female 10:17 AM EDT Gender Identity Female 06/08/2022 10:17 AM EDT Sexual Orientation Straight 06/08/2022 10 :17 AM EDT COVID-19 Exposure Response Date Recorded In the last 10 days, have yo u been in contact with someone who was confirmed or suspected to have Coronavirus/COVID-19? No / Unsure 01/01/2023 9:05 AM EDT documented as of this encounter Plan of Treatment Upcoming Encounters Date Type Department Care Team ([facility] Contact Info) Description 11/02/2024 10:00 AM EDT Office Visit [facility] [address] [place] [address] Negrito Romeo, BDS [address] [place], [place] [phone] 12/19/2024 4:00 PM EDT Office Visit [facility] [address] [place] [address] Name, MD Damian [address] [place] [address] documented as of this encounter Procedures Procedure Name Priority Date/Time Associated Diagnosis Comments COLONOSCOPY Routine 11/29/2020 11:46 AM EDT documented in this encounter Results * Colonoscopy (11/29/2020 11:46 AM EDT) Colonoscopy Normal Normal Comment:Repeat in 3 years du e to fair prep Narrative MarieChalinoba - 11/29/2020 11:46 AM EDT Recommended 3 years due to fair prep us Historical Provider HEALTH MAINTENANCE Edited Result - Final documented in this encounter Visit Diagnoses Not on filedocumented in this encounter Additional Health Concerns Assessment Noted Time PHQ-9 Depression Total Score: 11 12/14/ 023 10:47 AM EDT documented as of this encounter Care Teams Osd Clerk Relationship Specialty Start Date End Date Name, [place] [address] PCP - General Family Medicine 05/28/17 Danny Overton FNP [address] [place] [address] Nurse Practitioner Family Medicine 06/29/23 documented as of this encounter
--- OUTSIDE RECORDS SUMMARY | 2024-10-16 14:14 | XMS_ITS | Encounter Summary ---
Author Organization [employer] Address [address] [place] [address] Care Team Providers Care Condenser Winder Name Role Phone Name, Damian MASON Primary Care Provider [phone] Danny Overton Unavailable Unavailable Encounter Details Date Type Department Care Team (Latest Contact Info) Description 09/27/2024 Travel Social History Tobacco Use Types Packs/Day Years [...] 10:00 AM EDT Office Visit [facility] [address] [place] [address] Negrito Romeo, BDS [address] [place], [place] [phone] 12/19/2024 4:00 PM EDT Office Visit [facility] [address] [place] [address] Name, MD Damian [address] [place] [address] documented as of this encounter Visit Diagnoses Not on filedocumented in this encounter Additional Health Concerns Assessment Noted Time PHQ-9 Depression Total Score: 9 01/11/20 24 10:18 AM EDT documented as of this encounter Care Teams Condenser Winder Relationship Specialty Start Date End Date NameDamian MD [address] [place] [address] PCP - General Family Medicine 05/28/17 Danny Overton FNP [address] [place] [address] Nurse Practitioner Family Medicine 06/29/23 documented as of this encounter
--- OUTSIDE RECORDS SUMMARY | 2024-10-16 14:14 | XMS_ITS | Clinical Summary ---
Author Organization [facility] Address [address] [place] [address] Care Team Providers Care Access Lead Name Role Phone Name, Damian MASON Primary Care Provider [phone] Allergies Active Allergy Reactions Criticality Noted Date Comments Prochlorperazine Dyskinesia/Dystonia Medium 03/20/2021 Medications Medication Sig Dispensed Refills Start Date End Date Status clonazePAM (KlonoPIN) 1 MG tablet Take 1 tablet (1 mg total) by mouth 2 times daily (every 12 hours) as needed for anxiety. 06/05/2020 Active gabapentin (NEURONTIN) 400 MG capsule Take 2 capsules (800 mg total) by mouth 3 (three) times a day. 06/03/2020 Active lisinopril (PRINIVIL,ZeSTRIL) 10 MG tablet Take 1 tablet (10 mg total) by mouth daily. 05/30/2020 Active QUEtiapine (SEROquel) 50 MG tablet Take 0.5 tablets (25 mg total) by mouth nightly. 06/19/2020 Active zolpidem (AMBIEN) 10 MG tablet Take 1 tablet (10 mg total) by mouth nightly as needed for sleep. 05/23/2020 Active albuterol (PROVENTIL HFA; VENTOLIN HFA) 108 (90 Base) MCG/ACT inhaler Inhale 1-2 puffs every 4 (four) hours as needed for wheezing. 1 each 07/14/2023 Active atorvastatin (LIPITOR) 20 MG tablet Take 1 tablet (20 mg total) by mouth daily. Active cloNIDine (CATAPRES) 0.1 MG tablet Take 1 tablet (0.1 mg total) by mouth 2 (two) times a day. Active fluticasone (FloVENT HFA) 220 mcg/puff inhaler Inhale 1 puff 2 (two) times a day. Active glimepiride (AMARYL) 2 MG tablet Take 1 tablet (2 mg total) by mouth every morning with breakfast. Active hydrOXYzine HCl (ATARAX) 25 MG tablet Take 1-2 tablets (25-50 mg total) by mouth 3 (three) times a day as needed for anxiety. Active guaiFENesin (ROBITUSSIN) 100 mg/5 mL Liquid liquid Take 10 mL (200 mg total) by mouth 4 times daily (every 6 hours) as needed for cough. Active Carboxymethylcellul ose Sodium (EYE DROPS OP) Administer 1 drop to both eyes daily as needed (dry eye). Active SUMAtriptan (IMITREX) 25 MG tablet Take 1 tablet (25 mg total) by mouth once as needed for migraine. May repeat in 2 hours if unresolved. Do not exceed 200 mg in 24 hours. Active diphenhydrAMINE (BENADRYL) 25 MG tablet Take 1 tablet (25 mg total) by mouth 4 times daily (every 6 hours) as needed for itching or allergies. Active albuterol (ACCUNEB) 0.63 MG/3ML nebulizer solutionIndications :Asthma with status asthmaticus in adult Take 3 mL (0.63 mg total) by nebulization 4 times daily (every 6 hours) as needed for wheezing. 75 mL 07/17/2023 Active ibuprofen (MOTRIN) 600 MG tabletIndications:R SV infection Take 1 tablet (600 mg total) by mouth 4 times daily (every 6 hours) as needed for mild pain. 12 tablet 07/17/2023 Active predniSONE (DELTASONE) 20 MG tabletIndications:A sthma with status asthmaticus in adult Take 2 tablets (40 mg total) by mouth daily. With food. Do not start before July 18, 2023. 8 tablet 07/18/2023 Active PANTOprazole (PROTONIX) 40 MG EC tabletIndications:A sthma with status asthmaticus in adult Take 1 tablet (40 mg total) by mouth daily. 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): Added automatically from request for surgery [id number] Social History Tobacco Use Types Packs/Day Years Used Date Smoking Tobacco: Former Smokeless Tobacco: Never Tobacco Cessation:Counseling Given: Not Answered Alcohol Use Standard Drinks/Week Comments Not Currently 0 (1 standard drink = 0.6 oz pur e alcohol) Sex and Gender Information Value Date Recorded Sex Assigned at Female 05/11/2023 11:00 AM EDT Gender Identity Female 07/14/2023 8:34 AM EST Sexual Orientation Heterosexual (straight) 07/14 8:34 AM EST Last Filed Vital Signs Vital Sign Reading Time Taken Comments Blood Pressure 115/78 11/29/2023 1:14 PM EDT Pulse 76 11/29/2023 1:14 PM EDT Temperature 36.6 ??C (97.8 ??F) 11/29/2023 1:14 PM ED T Respiratory Rate 18 11/29/2023 1:14 PM EDT Oxygen Saturation 99% 11/29/2023 1:14 PM EDT Inhaled Oxygen Concentration - - Weight 56.7 kg (125 lb) 05/11/2023 10:33 AM EDT Height 147.3 cm (4' 10 ) 05/11/2023 10:33 AM EDT Body Mass Index 26.13 05/11/2023 10:33 AM EDT Plan of Treatment Health Maintenance Due Date Last Done Comments Hepatitis C Virus Screening 1969 HIV Screening 1982 DTaP/Tdap/Td Vaccines (1 - Tdap) 1988 Hepatitis B Vaccines (1 of 3 - 19+ 3-dose series) 1988 Pneumococcal Vaccines 50+ (1 of 2 - PCV) 1988 Pap Smear (Ages 21-65) 1990 Mammogram 2009 Colonoscopy 2014 Zoster (Shingles) Vaccine (1 of 2) 12/14/2019 Influenza Vaccine 03/09/2024 06/06/2018, , 08/26/2011 COVID-19 Vaccine ( - season) 2024 07/18/2021, 10/29/2020, 10/01/2020 Advance Directives * Full Code (Latest Code Status on File) Date Activated Date Inactivated Comments 07/17/2023 1:07 PM 11/29/2023 8:09 AM * Full Code Date Activated Date Inactivated Comments 07/10/2020 10:08 AM 03/20/2021 12:47 PM Care Teams Access Lead Relationship Specialty Start Date End Date Name, MD Damian [address] [place] [phone] PCP - General Internal Medicine 06/28/20
--- OUTSIDE RECORDS SUMMARY | 2024-10-16 14:14 | XMS_ITS | Encounter Summary ---
Author Organization [employer] Address [address] [facility] 7t [place] [address] Care Team Providers Care Tool Technician Name Role Phone Name, Damian MASON Primary Care Provider [phone] Danny Overton Unavailable Unavailable Reason for Visit * Reason Comments Med Refill Encounter Details Date Type Department Care Team (Late st Contact Info) Description 09/16/2024 Refill [facility] [address] [place] [address] Camila Looney NP [address] [place] [address] Anxiety disorder, unspecified type Social History Tobacco [...] 10:00 AM EDT Office Visit [facility] [address] [place] [address] Negrito Romeo, BDS [address] [place] [address] 12/19/2024 4:00 PM EDT Office Visit [facility] [address] [place] [address] [phone] Name, MD Damian [address] [place] [address] documented as of this encounter Visit Diagnoses Diagnosis Anxiety disorder, unspecified type documented in this encounter Additional Health Concerns Assessment Noted Time PHQ-9 Depression Total Score: 9 01/11/20 24 10:18 AM EDT documented as of this encounter Care Teams Tool Technician Relationship Specialty Start Date End Date Name, MD Damian [address] [place] [address] PCP - General Family Medicine 05/28/17 Danny Overton FNP [address] [place] [address] Nurse Practitioner Family Medicine 06/29/23 documented as of this encounter
--- OUTSIDE RECORDS SUMMARY | 2024-10-16 14:14 | XMS_ITS | Encounter Summary ---
Author Organization [employer] Address [address] [facility] 7t [place] [address] Care Team Providers Care Health And Safety Representative Name Role Phone Name, Damian MASON Primary Care Provider [phone] Danny Overton Unavailable Unavailable Reason for Visit * Reason Onset Date Comments chartprep 09/18/2024 Encounter Details Date Type Department Care Team (Late st Contact Info) Description 09/18/2024 Telephone [facility] [address] [place] [address] Jorge Atkins MA chartprep Social History Tobacco Use Types Packs/Day Years [...] the past 12 months, has t he [employer], gas, oil or water [employer] threatened to shut off services in your [...] encounter Miscellaneous Notes * Telephone Encounter - Jorge Atkins MA - 09/18/2024 1:42 PM EST Chart Prep Labs: not done vitamin 12 and Lipid panel Images: not done XR chest Vaccines due: Covid Due, Tdap Due, Hep A Due, Hep B Due, PCV20 Due, Flu Due, and Shingles in pharmacy Due Referrals: Pharmacy Completed Screenings: Colonoscopy , Mammogram, and Foot Exam Overdue care gaps: A1C, Glucose, and PHQ-9 documented in this encounter Plan of Treatment Upcoming Encounters Date Type Department Care Team (Late st Contact Info) Description 11/02/2024 10:00 AM EDT Office Visit [facility] [address] [place] [address] [phone] Negrito Romeo BDS [address] [place] [address] [phone] 12/19/2024 4:00 PM EDT Office Visit [facility] [address] [place] [address] Name, [place] [address] documented as of this encounter Visit Diagnoses Not on filedocumented in this encounter Additional Health Concerns Assessment Noted Time PHQ-9 Depression Total Score: 9 01/11/20 24 10:18 AM EDT documented as of this encounter Care Teams Health And Safety Representative Relationship Specialty Start Date End Date Name, [place] [address] PCP - General Family Medicine 05/28/17 Danny Overton FNP [address] [place] [phone] Nurse Practitioner Family Medicine 06/29/23 documented as of this encounter
--- OUTSIDE RECORDS SUMMARY | 2024-10-16 14:14 | XMS_ITS | Encounter Summary ---
Author Organization [employer] Address [address] [facility] [address] 7t [place] [address] Care Team Providers Care Saddle Stitch Operator Name Role Phone Name, Damian MASON Primary Care Provider [phone] Danny Overton Unavailable Unavailable Encounter Details Date Type Department Care Team (Latest Contact Info) Description 10/14/2024 Travel Social History Tobacco Use Types Packs/Day [...] Description 11/02/2024 10:00 AM EDT Office Visit [facility] [address] [place] [address] Negrito Romeo, BDS [address] [place], [place] [phone] 12/19/2024 4:00 PM EDT Office Visit [facility] [address] [place] [phone] Name, MD Damian [address] [place] [phone] documented as of this encounter Visit Diagnoses Not on filedocumented in this encounter Additional Health Concerns Assessment Noted Time PHQ-9 Depression Total Score: 9 01/11/20 24 10:18 AM EDT documented as of this encounter Care Teams Saddle Stitch Operator Relationship Specialty Start Date End Date NameDamian MD [address] [place] [address] PCP - General Family Medicine 05/28/17 Danny Overton FNP [address] [place] [address] Nurse Practitioner Family Medicine 06/29/23 documented as of this encounter
--- OUTSIDE RECORDS SUMMARY | 2024-10-16 14:14 | XMS_ITS | Encounter Summary ---
Author Organization [employer] Address 75 [facility] 7 [place] [address] Care Team Providers Care Crew Trainer Name Role Phone Damian Bauman MD Primary Care Provider [phone] Danny Overton Unavailable Unavailable Reason for Referral * Consultation (Routine) - Closed Specialty Diagnoses / Procedures Referred By Contac t Referred To Contact Psychiatry / Behavioral Health Diagnoses Bipolar I disorder (CMS/HCC) Anxiety disorder, unspecified type Damian Bauman MD [address] [place] [address] Phone: tel: fax: Francisco Atkins PMHNP [address] [place] [address] Phone: tel: fax: Referral ID Status Reason Start Date Expiration Date V isits Requested Visits Authorized [id number] Closed Specialty Services Required 09/20/2024 09/20/2025 1 1 Reason for Visit * Reason Comments Follow-up Encounter Details Date Type Department Care Team (Late st Contact Info) Description 09/19/2024 3:45 PM EST Office Visit [facility] [address] [place] [address] Damian Bauman MD [address] [place] [phone] Type 2 diabetes mellitus with hyperglycemia, without long-term current use of insulin (CMS/HCC) (Primary Dx); Essential hypertension; Bipolar I disorder (CMS/HCC); Anxiety disorder, unspecified type; High cholesterol Social History Tobacco Use Types Packs/Day Years Used Date Smoking Tobacco: Former Cigarettes Passive Smoke Exposure: Current Tobacco Cessation:Counseling Given: Not Answered Comments:Smokes marijuana Alcohol Use Standard Drinks/Week Comments [...] Sign Reading Time Taken Comments Blood Pressure 138/92 09/19/2024 4:24 PM EST Pulse 90 09/19/2024 4:23 PM EST Temperature 36.2 ??C (97.1 ??F) 09/19/2024 4:23 PM ES T Respiratory Rate 20 09/19/2024 4:23 PM EST Oxygen Saturation 99% 09/19/2024 4:23 PM EST Inhaled Oxygen Concentration - - Weight 54.3 kg (119 lb 9.6 oz) 09/19/2024 4:23 P M EST Height 147.3 cm (4' 9.98 ) 09/19/2024 4:23 PM ES T Body Mass Index 25.01 09/19/2024 4:23 PM EST documented in this encounter Progress Notes * Damian Bauman, - 09/19/2024 3:45 PM EST Subjective Patient ID: Tesha Díaz is a 53 y.o. female who presents for Follow-up. Patient comes for a follow-up visit. She is depressed and anxious. She cries during the visit. She is not suicidal. She denies use of illicits. She tells me that she stopped using multiple medications for several months including her psychiatric and diabetes meds. She is not checking her blood sugar at home. Her blood sugar is uncontrolled based on her hemoglobin A1c. She tells me she traveled [facility] to visit her mom hoping to reconnect but she left [place] feeling worse since her relationship with her mother did not improve at all. She has asked me to refill her psychiatric meds and to referral back to behavioral health. She tells me she never use the Trulicity I prescribed her on her previous visit with me because of fear of side effects. She does not use her metformin regularly. Review of Systems Constitutional: Negative for chills and fever. HENT: Negative for sore throat. Respiratory: Negative for cough, shortness of breath and wheezing. Cardiovascular: Negative for chest pain, palpitations and leg swelling. Gastrointestinal: Negative for abdominal pain. Visit Vitals BP (!) 138/92 (BP Location: Left arm, Patient Position: Sitting, BP Cuff Size: Adult) Pulse 90 Temp 97.1 ??F (36.2 ??C) (Temporal) Resp 20 Ht 4' 9.98 (1.473 m) Wt 119 lb 9.6 oz (54.3 kg) SpO2 99% BMI 25.01 kg/m?? Smoking Status Former BSA 1.49 m?? Objective Physical Exam Constitutional: Appearance: Normal appearance. Cardiovascular: Rate and Rhythm: Normal rate and regular rhythm. Heart sounds: No murmur heard. No gallop. Pulmonary: Effort: Pulmonary effort is normal. No respiratory distress. Breath sounds: Normal breath sounds. No wheezing. Musculoskeletal: Right lower leg: No edema. Left lower leg: No edema. Neurological: Mental Status: She is alert. Lab Results Component Value Date HGBA1C 9.7 (A) 09/19/2024 HGBA1C 8.1 (A) 05/17/2024 HGBA1C 8.0 (A) 02/28/2024 HGBA1C 8.7 (A) 09/22/2023 HGBA1C 7.3 (A) 02/23/2023 HGBA1C 7.4 (A) 11/24/2022 HGBA1C 6.9 (H) 09/10/2021 HGBA1C 7.7 (H) 06/26/2020 HGBA1C 6.8 (H) 02/16/2020 Assessment/Plan Diagnoses and all orders for this visit: Type 2 diabetes mellitus with hyperglycemia, without long-term current use of insulin ([facility]) Comments: I recommend to avoid sweets and soda. Restart using her medications and checking blood sugar at home. I sent metformin and low-dose glipizide to pharmacy. She does not want to use injected meds. Check blood work listed below. Orders: - POCT Glucose - POCT HGB A1C - Comprehensive Metabolic Panel; Future - CBC auto differential; Future - Albumin, Random Urine W/Creatinine; Future Essential hypertension Comments: I recommend to restart amlodipine. Check BMP and urine for microalbumin. Orders: - Comprehensive Metabolic Panel; Future - CBC auto differential; Future - Albumin, Random Urine W/Creatinine; Future Bipolar I disorder ([facility]) Comments: I will refill her psychiatric meds. Referral to behavioral health. Orders: - TSH W/Reflex to FT4; Future - gabapentin (Neurontin) 400 MG capsule; Take 2 capsules (800 mg) by mouth 3 times daily. - Referral to Behavioral Health; Future Anxiety disorder, unspecified type Comments: See above. Orders: - clonazePAM (KlonoPIN) 1 MG tablet; Take 1 tablet (1 mg) by mouth Once per day. - TSH W/Reflex to FT4; Future - hydrOXYzine HCl (Atarax) 50 MG tablet; Take 1 tablet (50 mg) by mouth every 6 (six) hours if needed for anxiety. - QUEtiapine (SEROquel) 50 MG tablet; Take 1.5 tablets (75 mg) by mouth at bedtime. - zolpidem (Ambien) 10 MG tablet; Take 1 tablet (10 mg) by mouth if needed at bedtime for sleep. - gabapentin (Neurontin) 400 MG capsule; Take 2 capsules (800 mg) by mouth 3 times daily. - Referral to Behavioral Health; Future High cholesterol Comments: Daily statin, check fasting blood work Orders: - atorvastatin (Lipitor) 20 MG tablet; Take 1 tablet (20 mg) by mouth in the morning. Other orders - amLODIPine (Norvasc) 2.5 MG tablet; Take 2 tablets (5 mg) by mouth Once per day. - glipiZIDE XL (Glucotrol XL) 2.5 MG 24 hr tablet; Take 1 tablet (2.5 mg) by mouth Once per day. Donot crush, chew, or split. - metFORMIN (Glucophage) 500 MG tablet; TAKE 1 TABLET BY MOUTH WITH EVENING MEAL. DO NOT CRUSH, CHEW OR SPLIT. documented in this encounter Plan of Treatment Upcoming Encounters Date Type Department Care Team (Late st Contact Info) Description 11/02/2024 10:00 AM EDT Office Visit [facility] [address] [place], [place] [phone] Negrito Romeo BDS [address] [place], [place] [phone] 12/19/2024 4:00 PM EDT Office Visit [facility] [address] [place] [address] [phone] Damian Bauman MD [address] [place] [phone] Scheduled Orders Name Type Priority Associated Diagnoses Orde r Schedule Comprehensive Metabolic Panel Lab Routine Type 2 diabetes mellitus with hyperglycemia, without long-term current use of insulin ([facility]) Essential hypertension Expected: 09/19/2024 (Approximate), Expires: 09/19/2025 CBC auto differential Lab Routine Type 2 diabetes mellitus with hyperglycemia, without long-term current use of insulin ([facility]) Essential hypertension Expected: 09/19/2024 (Approximate), Expires: 09/19/2025 Albumin, Random Urine W/Creatinine Lab Routine Type 2 diabetes mellitus with hyperglycemia, without long-term current use of insulin ([facility]) Essential hypertension Expected: 09/19/2024 (Approximate), Expires: 09/19/2025 TSH W/Reflex to FT4 Lab Routine Bipolar I disorder ([facility]) Anxiety disorder, unspecified type Expected: 09/19/2024 (Approximate), Expires: 09/19/2025 Scheduled Referrals Name Type Priority Associated Diagnoses Orde r Schedule Referral to Behavioral Health Outpatient Referral Routine Bipolar I disorder ([facility]) Anxiety disorder, unspecified type Expected: 09/20/2024 (Approximate), Expires: 09/20/2025 documented as of this encounter Procedures Procedure Name Priority Date/Time Associated Diagnosis Comments POCT GLYCATED HEMOGLOBIN, TOTAL Routine 09/19/2024 4:36 PM EST Type 2 diabetes mellitus with hyperglycemia, without long-term current use of insulin ([facility]) POCT GLUCOSE Routine 09/19/2024 4:32 PM EST Type 2 diabetes mellitus with hyperglycemia, without long-term current use of insulin ([facility]) documented in this encounter Results * (ABNORMAL) POCT HGB A1C (09/19/2024 4:36 PM EST) Hemoglobin A1C 9.7(A) 4.0 - 6.0 % QC Media Lot # [id number] Lot# Expiration Date [id number] Blood 09/19/2024 4:36 PM EST [facility] POINT OF CARE TEST ENTER/EDIT OR DERABLES Final Result * (ABNORMAL) POCT Glucose (09/19/2024 4:32 PM EST) Glucose Blood, POC 250(A) 60 - 200 mg/dL QC Media Lot # [id number] Lot# Expiration Date Blood Capillary blood specimen / Unknown 09/19/2024 4:32 PM EST Damian Name POINT OF CARE TEST ENTER/EDIT OR DERABLES Final Result documented in this encounter Visit Diagnoses Diagnosis Type 2 diabetes mellitus with hyperglycemia, without long-term current use of insulin ([facility])- Primary Essential hypertension Unspecified essential hypertension Bipolar I disorder ([facility]) Bipolar I disorder, most recent episode (or current) unspecified Anxiety disorder, unspecified type High cholesterol Pure hypercholesterolemia documented in this encounter Additional Health Concerns Assessment Noted Time PHQ-9 Depression Total Score: 9 01/11/20 24 10:18 AM EDT documented as of this encounter Care Teams Crew Trainer Relationship Specialty Start Date End Date Name, MD Damian [address] [place] [address] PCP - General Family Medicine 05/28/17 Danny Overton FNP [address] [place] [address] Nurse Practitioner Family Medicine 06/29/23 documented as of this encounter
--- OUTSIDE RECORDS SUMMARY | 2024-10-16 14:14 | XMS_ITS | Encounter Summary ---
Author Organization [employer] Address 75 [facility] 7t [place] [address] Care Team Providers Care Pony Trimmer Name Role Phone Name, Damian MASON Primary Care Provider Danny Overton Unavailable Unavailable Reason for Visit * Reason Comments Med Refill Encounter Details Date Type Department Care Team ([facility] Contact Info) Description 01/13/2023 Refill [facility] [address] [place] [address] Danny Overton FNP Social History Tobacco Use Types Packs/Day Years [...] Upcoming Encounters Date Type Department Care Team ([facility] Contact Info) Description 11/02/2024 10:00 AM EDT Office Visit [facility] [address] [place] [address] [phone] Negrito Romeo BDS [address] [place] [address] 12/19/2024 4:00 PM EDT Office Visit [facility] [address] [place] [phone] Name, MD Damian [address] [place] [phone] documented as of this encounter Visit Diagnoses Not on filedocumented in this encounter Additional Health Concerns Assessment Noted Time PHQ-9 Depression Total Score: 11 023 10:47 AM EDT documented as of this encounter Care Teams Pony Trimmer Relationship Specialty Start Date End Date Name, MD Damian [address] [place] [phone] PCP - General Family Medicine 05/28/17 Danny Overton FNP [address] [place] [phone] Nurse Practitioner Family Medicine 06/29/23 documented as of this encounter
--- OUTSIDE RECORDS SUMMARY | 2024-10-16 14:14 | XMS_ITS | Encounter Summary ---
Author Organization [employer] Address [address] [place] [address] 7 [place] [address] Care Team Providers Care Human Resource Intern Name Role Phone Name, Damian MASON Primary Care Provider [phone] Danny Overton Unavailable Unavailable Reason for Visit * Reason Comments Med Refill Encounter Details Date Type Department Care Team (Late Contact Info) Description 02/05/2023 Refill [facility] [address] [place] [address] [phone] Danny Overton FNP Social History Tobacco Use [...] Description 11/02/2024 10:00 AM EDT Office Visit [facility] [address] [place] [address] [phone] Negrito Romeo BDS [address] [place] [address] [phone] 12/19/2024 4:00 PM EDT Office Visit [facility] [address] [place] [address] Name, MD Damian [address] [place] [address] documented as of this encounter Visit Diagnoses Not on filedocumented in this encounter Additional Health Concerns Assessment Noted Time PHQ-9 Depression Total Score: 1 01/19/20 23 10:36 AM EDT documented as of this encounter Care Teams Human Resource Intern Relationship Specialty Start Date End Date Name, MD Damian [address] [place] [phone] PCP - General Family Medicine 05/28/17 Danny Overton FNP [address] [place] [phone] Nurse Practitioner Family Medicine 06/29/23 documented as of this encounter
--- OUTSIDE RECORDS SUMMARY | 2024-10-16 14:14 | XMS_ITS | Encounter Summary ---
Author Organization [employer] Address [address] [facility] [address] 7t [place] [address] Care Team Providers Care Absence Management Consultant Name Role Phone Name, Damian MASON Primary Care Provider [phone] Danny Overton Unavailable Unavailable Encounter Details Date Type Department Care Team (Latest Contact Info) Description 09/19/2024 Travel Social History Tobacco Use Types Packs/Day [...] Description 11/02/2024 10:00 AM EDT Office Visit [facility] [address] [place] [address] Negrito Romeo, BDS [address] [place], [place] [phone] 12/19/2024 4:00 PM EDT Office Visit [facility] [address] [place] [phone] Name, MD Damian [address] [place] [phone] documented as of this encounter Visit Diagnoses Not on filedocumented in this encounter Additional Health Concerns Assessment Noted Time PHQ-9 Depression Total Score: 9 01/11/20 24 10:18 AM EDT documented as of this encounter Care Teams Absence Management Consultant Relationship Specialty Start Date End Date NameDamian MD [address] [place] [phone] PCP - General Family Medicine 05/28/17 Danny Overton FNP [address] [place] [address] Nurse Practitioner Family Medicine 06/29/23 documented as of this encounter
--- OUTSIDE RECORDS SUMMARY | 2024-10-16 14:14 | XMS_ITS | Encounter Summary ---
Author Organization [employer] Address [address] [facility] [address] 7[address] [place] [address] Care Team Providers Care Investment Professional Name Role Phone Name, Damian MASON Primary Care Provider [phone] Danny Overton Unavailable Unavailable Encounter Details Date Type Department Care Team (Late st Contact Info) Description 06/27/2023 Abstract [facility] [address] [place] [address] Tamie Salazar Social History Tobacco Use Types Packs/Day Years Used Date Smoking Tobacco: Former Cigarettes Comments:Smokes marijuana Alcohol Use Standard Drinks/Week Comments Yes 0 (1 standard drink = 0.6 oz pur e alcohol) Depression Answer Date Recorded Patient Health Questionnaire-9 Score 2 06/29/2023 Patient Health Questionnaire-9 Score 2 06/29/2023 Last PHQ-9: Questionnaire Data Not on file 1 08/29/2022 Housing Stability Answer Date Recorded What is [...] Answer Date Recorded Patient Health Questionnaire-2 Score 0 06/29/2023 Comments Unknown Sex and Gender Information Value [...] 11/02/2024 10:00 AM EDT Office Visit [facility] [address] [place] [address] Negrito Romeo BDS [address] [place], [place] [phone] 12/19/2024 4:00 PM EDT Office Visit [facility] [address] [place] [address] Name, MD Damian [address] [place] [phone] documented as of this encounter Visit Diagnoses Not on filedocumented in this encounter Additional Health Concerns Assessment Noted Time PHQ-9 Depression Total Score: 3 04/29/20 23 8:55 AM EDT documented as of this encounter Care Teams Investment Professional Relationship Specialty Start Date End Date Name, MD Damian [address] [place] [phone] PCP - General Family Medicine 05/28/17 Danny Overton FNP [address] [place] [phone] Nurse Practitioner Family Medicine 06/29/23 documented as of this encounter
--- OUTSIDE RECORDS SUMMARY | 2024-10-16 14:14 | XMS_ITS | Encounter Summary ---
Author Organization [employer] Address 75 [facility] 7t [place] [address] Care Team Providers Care Dry Boss Name Role Phone Name, Damian MASON Primary Care Provider [phone] Danny Overton Unavailable Unavailable Reason for Visit * Reason Onset Date Comments Medication Question 10/13/2024 Encounter Details Date Type Department Care Team (Late st Contact Info) Description 10/13/2024 Telephone [facility] [address] [place], [place] [phone] Name, MD Damian [address] [place], [place] [phone] Medication Question Social History Tobacco Use Types Packs/Day Years [...] encounter Miscellaneous Notes * Telephone Encounter - Franky Khan - 10/13/2024 12:53 PM EST TC from pt requesting a call back to further discuss medication Clonezepam . Pt states provider hasher on one a day when he knows how my life is pt also would like to discuss B/P medication . Call disconnected prior to caller finishing her thoughts . Number pt called in with is different than on file [phone] documented in this encounter Plan of Treatment Upcoming Encounters Date Type Department Care Team (Late st Contact Info) Description 11/02/2024 10:00 AM EDT Office Visit [facility] [address] [place] [address] Negrito Romeo BDS [address] [place] [address] 12/19/2024 4:00 PM EDT Office Visit [facility] [address] [place] [address] Name, MD Damian [address] [place] [phone] documented as of this encounter Visit Diagnoses Not on filedocumented in this encounter Additional Health Concerns Assessment Noted Time PHQ-9 Depression Total Score: 9 01/11/20 24 10:18 AM EDT documented as of this encounter Care Teams Dry Boss Relationship Specialty Start Date End Date Name, MD Damian [address] [place] [phone] PCP - General Family Medicine 05/28/17 Danny Overton FNP [address] [place] [phone] Nurse Practitioner Family Medicine 06/29/23 documented as of this encounter
--- OUTSIDE RECORDS SUMMARY | 2024-10-16 14:14 | XMS_ITS | Encounter Summary ---
Author Organization [facility] Address [address] [place] [address] Care Team Providers Care Attorney Law Clerk Name Role Phone Unknown Primary Care Provider [phone] Name, Damian MASON Primary Care Provider Encounter Details Date Type Department Care Team (Late st Contact Info) Description 03/19/2020 Lab Requisition [facility] [address] [place] [phone] Ran Sims PA-C [address] [place] [address] Encounter for laboratory testing for COVID-19 virus Social History Tobacco Use Types Packs/Day Years Used Date Smoking Tobacco: Never Assessed Sex and Gender Information Value Date Recorded Sex Assigned at Female 05/11/2023 11:00 AM EDT Gender Identity Female 07/14/2023 8:34 AM EST Sexual Orientation Heterosexual (straight) 07/14 8:34 AM EST documented as of this encounter Plan of Treatment Not on file documented as of this encounter Procedures Procedure Name Priority Date/Time Associated Diagnosis Comments (REPORT) SARS COV-2 RNA (COVID-19), QUAL Routine 03/19/2020 10:45 AM EDT Encounter for laboratory testing for COVID-19 virus [ICD-10-CM] documented in this encounter Results * SARS CoV-2 RNA (COVID-19), Qual (03/19/2020 10:45 AM EDT) SARS CoV 2 RNA, Qual NOT DETECTED NOT DETECTED 03/20/2020 5:00 PM [facility] Comment: A Not Detected (negative) test result for this test means that SARS-CoV-2 RNA was not present in the specimen above the limit of detection. A negative result does not rule out the possibility of COVID-19 and should not be used as the sole basis for treatment or patient management decisions. If COVID-19 is still suspected, based on exposure history together with other clinical findings, re-testing should be considered in consultation with public health authorities. Laboratory test results should always be considered in the context of clinical observations and epidemiological data in making a final diagnosis and patient management decisions. REFERENCE RANGE: ??NOT DETECTED This patient specimen was tested using an FDA EUA pooling method. Negative results from pooled testing should not be treated as definitive. ??If the patient's clinical signs and symptoms are inconsistent with a negative result or results are necessary for patient management, then the patient should be considered for individual testing. Specimens with low viral loads may not be detected in sample pools due to the decreased sensitivity of pooled testing. Please review the Fact Sheets and FDA authorized labeling available for health care providers and patients using the following websites: https://www.[employer].motify/home/Covid-19/HCP/QuestLDTP/ fact-sheet https://www.[employer].com/home/Covid-19/Patients/QuestLDTP/ fact-sheet.html This test has been authorized by the FDA under an Emergency Use Authorization (EUA) for use by authorized laboratories. Due to the current public health emergency, [facility] is receiving a high volume of samples from a wide variety of swabs and media for COVID-19 testing. In order to serve patients during this public health crisis, samples from appropriate clinical sources are being tested. Negative test results derived from specimens received in non-commercially manufactured viral collection and transport media, or in media and sample collection kits not yet authorized by FDA for COVID-19 testing should be cautiously evaluated and the patient potentially subjected to extra precautions such as additional clinical monitoring, including collection of an additional specimen. Methodology: ??Nucleic Acid Amplification Test (NAAT) includes PCR or TMA ?? Additional information about COVID-19 can be found at the [facility] website: www.Index/Covid19. Microbiology Nasopharyngeal swab / Unknown 03/19/2020 10:45 AM EDT 03/19/2020 10:45 AM EDT Narrative [facility] - 03/20/2020 5:00 PM EDT Performing Organization Information: ?Site ID: [id number] ?Name: [facility] ?Address: [address] [place] [address],[place] [address] ?Director: ROMMEL MAHARAJ MD [facility]formed at [facility] License number [id number] Ran Sims PA-Dave [employer] S TOOLS ORDERABLES Performing Organization Address City/State/[facility] Co de Phone Number [facility] documented in this encounter Visit Diagnoses Diagnosis Encounter for laboratory testing for COVID-19 virus documented in this encounter Care Teams Attorney Law Clerk Relationship Specialty Start Date End Date Unknown Unknow Provider Address PCP - General 07/05/19 06/27/20 Name, MD Damian [address] [place] [address] PCP - General Internal Medicine 06/28/20 documented as of this encounter
--- OUTSIDE RECORDS SUMMARY | 2024-10-16 14:14 | XMS_ITS | Encounter Summary ---
Author Organization [employer] Address [address] [facility] 7t [place] [address] Care Team Providers Care Electrician'S Helper Name Role Phone Name, Damian MASON Primary Care Provider [phone] Danny Overton Unavailable Unavailable Encounter Details Date Type Department Care Team (Late st Contact Info) Description 09/27/2024 1:45 PM EST Office Visit [facility] OPTOMETRY [address] [place] [address] Ryan, Milagro, OD [address] [place] [address] Regular astigmatism of both eyes (Primary Dx) Social History Tobacco Use Types Packs/Day Years [...] AM EDT documented as of this encounter Progress Notes * Milagro Davis OD - 09/27/2024 1:45 PM EST MH glasses were dispensed, 1 of 2. documented in this encounter Plan of Treatment Upcoming Encounters Date Type Department Care Team (Late st Contact Info) Description 11/02/2024 10:00 AM EDT Office Visit [facility] DENTAL [address] [place], [place] [phone] Negrito Romeo BDS [address] [place], [place] [phone] 12/19/2024 4:00 PM EDT Office Visit [facility] MEDICINE [address] [place] [address] Name, MD Damian [address] [place] [address] documented as of this encounter Visit Diagnoses Diagnosis Regular astigmatism of both eyes- Primary documented in this encounter Additional Health Concerns Assessment Noted Time PHQ-9 Depression Total Score: 9 01/11/20 24 10:18 AM EDT documented as of this encounter Care Teams Electrician'S Helper Relationship Specialty Start Date End Date Name, MD Damian [address] [place] [address] PCP - General Family Medicine 05/28/17 Danny Overton FNP [address] [place] [address] Nurse Practitioner Family Medicine 06/29/23 documented as of this encounter
--- OUTSIDE RECORDS SUMMARY | 2024-10-16 14:14 | XMS_ITS | Encounter Summary ---
Author Organization [employer] Address [address] [facility] [address] 7t [place] [address] Care Team Providers Care U.S. Senator Name Role Phone Name, Damian MASON Primary Care Provider [phone] Danny Overton Unavailable Unavailable Encounter Details Date Type Department Care Team (Latest Contact Info) Description 09/28/2024 Outside Procedure [facility] OPTOMETRY [address] [place] [address] Ryan, Milagro, OD [address] [place] [address] Presbyopia (Primary Dx) Social History Tobacco Use Types [...] Progress Notes * Milagro Davis OD - 09/28/2024 1:37 PM EST MH glasses were dispensed, 2 of 2. documented in this encounter Plan of Treatment Upcoming Encounters Date Type Department Care Team (Late st Contact Info) Description 11/02/2024 10:00 AM EDT Office Visit [facility] DENTAL [address] [place] [address] Negrito Romeo, BDS [address] [place], [place] [phone] 12/19/2024 4:00 PM EDT Office Visit [facility] MEDICINE [address] [place] [address] Name, MD Damian [address] [place] [address] documented as of this encounter Visit Diagnoses Diagnosis Presbyopia- Primary documented in this encounter Additional Health Concerns Assessment Noted Time PHQ-9 Depression Total Score: 9 01/11/20 24 10:18 AM EDT documented as of this encounter Care Teams U.S. Senator Relationship Specialty Start Date End Date Name, MD Damian [address] [place] [address] PCP - General Family Medicine 05/28/17 Danny Overton FNP [address] [place] [address] Nurse Practitioner Family Medicine 06/29/23 documented as of this encounter
--- OUTSIDE RECORDS SUMMARY | 2024-10-16 14:14 | XMS_ITS | Encounter Summary ---
Author Organization [employer] Address [address] [facility] 7t [place] [address] Care Team Providers Care Enrollment Management Vice President Name Role Phone Name, Damian MASON Primary Care Provider [phone] Danny Overton Unavailable Unavailable Encounter Details Date Type Department Care Team (Late st Contact Info) Description 09/27/[address] [facility] DENTAL [address] [place], [place] [phone] Negrito Romeo, BDS [address] [place], [place] [phone] Social History Tobacco Use Types Packs/Day Years [...] encounter Miscellaneous Notes * Telephone Encounter - Courtney Bobo - 09/27/2024 10:23 AM EST Patient was scheduled for today at 10AM to see Dr. Alejo for protestant apt. A few mins before patient walked in I find out thru tx that Dr. Alejo will not be able to see any morning patients due to NO DA. I explained to patient the situation in which she was not happy at all. She started getting loud telling me she wasn't leaving the place until she was seen. I went ahead and explain to her againwhat was happening as to why Dr. Alejo can't see her and finally got her to calm down. I offered daisy visit for today at [facility]. In which she did say she didn't mind being seen at [facility]. I tried calling but there was no answer. Patient then asked to be rescheduled for here. I booked a new apt with Dr. Alejo. Patient did mentioned she will be going to [facility] now to put in a complaint. In which si believe she tried calling [facility] or atleast pretended like she did. documented in this encounter Plan of Treatment Upcoming Encounters Date Type Department Care Team (Late st Contact Info) Description 11/02/2024 10:00 AM EDT Office Visit [facility] DENTAL [address] [place], [place] [phone] Negrito Romeo, BDS [address] [place], [place] [phone] 12/19/2024 4:00 PM EDT Office Visit [facility] MEDICINE [address] [place] [address] Name, MD Damian [address] [place] [address] documented as of this encounter Visit Diagnoses Not on filedocumented in this encounter Additional Health Concerns Assessment Noted Time PHQ-9 Depression Total Score: 9 01/11/20 24 10:18 AM EDT documented as of this encounter Care Teams Enrollment Management Vice President Relationship Specialty Start Date End Date Name, MD Damian [address] [place] [address] PCP - General Family Medicine 05/28/17 Danny Overton FNP [address] [place] [address] Nurse Practitioner Family Medicine 06/29/23 documented as of this encounter
[2024-10-16 16:09] LABS: MANUAL DIFF FLAG NO
[2024-10-16 16:20] LABS: Basophils Absolute Auto 0.1 X10*3/uL (0.0-0.2); Basophils Percent Auto 0.5 % (0-2); Eosinophils Absolute Auto 0.6 X10*3/uL (0.0-0.4); Eosinophils Percent Auto 5.2 % (0-4); Hematocrit 44.1 % (37.0-47.0); Hemoglobin 14.8 g/dl (12.0-16.0); Imm Gran Abs Auto 0.05 X10*3/uL (0.00-0.03); Imm Gran Pct Auto 0.4 % (0.0-0.4); Lymphocytes Absolute Auto 3.1 X10*3/uL (1.2-4.9); Mean Corpuscular HGB Conc 33.6 g/dl (31.0-35.0); Mean Corpuscular Volume 80.3 fL (80.0-98.0); Mean Platelet Volume 12.3 fL (9.4-12.3); Monocytes Absolute Auto 0.8 X10*3/uL (0.1-1.2); Monocytes Percent Auto 7.4 % (2-11); Neutrophils Absolute Auto 6.5 x10*3/uL (2.0-8.3); Neutrophils Percent Auto 58.5 % (45-73); Platelet Count 320 X10*3/uL (160-400); Red Blood Count 5.49 X10*6/uL (4.20-5.50); Red Cell Distribution Width 12.9 % (11.0-16.0); White Blood Count 11.1 X10*3/uL (4.8-10.8)
[2024-10-16 16:34] LABS: Estimated Average Glucose 246 mg/dL; Hemoglobin A1c % 10.2 % (<6.0)
[2024-10-16 17:01] LABS: Vitamin B12 467 pg/mL (200-900)
[2024-10-16 17:21] LABS: Alanine Aminotransferase 35 U/L (0-31); Albumin Level 4.1 g/dL (3.5-5.0); Alkaline Phosphatase 129 U/L (39-117); Anion Gap 14 (12-20); Aspartate Amino Transferase 22 U/L (5-31); Bilirubin Total 0.4 mg/dL (0.0-1.0); Blood Urea Nitrogen 21 mg/dL (9-16); Carbon Dioxide 21 mmol/L (22-29); Chloride 107 mmol/L (96-108); Cholesterol 167 mg/dL (<200); Estimated Glomerular Filt Rate > 60; Glucose Random 214 mg/dL (60-115); HDL Cholesterol 58 mg/dL (>40); LDL Cholesterol Calculated 89 mg/dL (<100); Potassium 3.8 mmol/L (3.3-5.1); Sodium 138 mmol/L (135-145); TSH reflex Free T4 1.61 uIU/mL (0.32-4.0); Total Protein 7.5 g/dL (6.5-8.0); Triglycerides 104 mg/dL (<150)
== END 2024-10-16 12:44 | disposition home or self-care (01) ==
LOC: HO.HHCL 12:43
PROVIDERS: Internal Medicine; Visit Provider Internal Medicine Geriatric Medicine
DX: F31.9 Bipolar disorder, unspecified (principal); F41.9 Anxiety disorder, unspecified; E11.65 Type 2 diabetes mellitus with hyperglycemia
CPT/HCPCS: 36415; 80053; 80061; 82043; 82570; 82607; 83036; 84443; 85025

== ENCOUNTER 2024-10-16 14:33 | Outpatient (REF) | payer MEDICAID, SELFPAY ==
--- OUTSIDE RECORDS SUMMARY | 2024-10-16 16:39 | XMS_ITS | Encounter Summary ---
Author Organization [employer] Address [address] [facility] 7t [place] [address] Care Team Providers Care Java Tech Lead Name Role Phone Name, Damian MASON Primary Care Provider [phone] Danny Overton Unavailable Unavailable Reason for Visit * Reason Onset Date Comments Medication Question 10/13/2024 Encounter Details Date Type Department Care Team (Late st Contact Info) Description 10/13/2024 Telephone [facility] [address] [place], [place] [phone] Name, MD Damian [address] [place], [place] [phone] Medication Question Social History Tobacco Use Types [...] in with is different than on file [phone] documented in this encounter Plan of Treatment Upcoming Encounters Date Type Department Care Team (Late st Contact Info) Description 11/02/2024 10:00 AM EDT Office Visit [facility] DENT[facility] [address] [place] [address] Negrito Romeo BDS [address] [place] [address] 12/19/2024 4:00 PM EDT Office Visit [facility] [address] [place] [address] Name, MD Damian [address] [place] [address] documented as of this encounter Visit Diagnoses Not on filedocumented in this encounter Additional Health Concerns Assessment Noted Time PHQ-9 Depression Total Score: 9 01/11/20 24 10:18 AM EDT documented as of this encounter Care Teams Java Tech Lead Relationship Specialty Start Date End Date Name, MD Damian [address] [place] [address] PCP - General Family Medicine 05/28/17 Danny Overton FNP [address] [place] [address] Nurse Practitioner Family Medicine 06/29/23 documented as of this encounter
--- OUTSIDE RECORDS SUMMARY | 2024-10-16 16:39 | XMS_ITS | Encounter Summary ---
Author Organization [employer] Address [address] [facility] [address] 7[address] [place] [address] Care Team Providers Care Towel Sewer Name Role Phone Name, Damian MASON Primary Care Provider [phone] Danny Overton Unavailable Unavailable Encounter Details Date [...] [facility] DENTAL [address] [place] [address] Negrito Romeo, BDS [address] [place], [place] [phone] 12/19/2024 4:00 PM EDT Office Visit [facility] MEDICINE [address] [place] [address] Name, MD Damian [address] [place] [address] documented as of this encounter Visit Diagnoses Not on filedocumented in this encounter Additional Health Concerns Assessment Noted Time PHQ-9 Depression Total Score: 9 01/11/20 24 10:18 AM EDT documented as of this encounter Care Teams Towel Sewer Relationship Specialty Start Date End Date NameDamian MD [address] [place] [address] PCP - General Family Medicine 05/28/17 Danny Overton FNP [address] [place] [address] Nurse Practitioner Family Medicine 06/29/23 documented as of this encounter
--- OUTSIDE RECORDS SUMMARY | 2024-10-16 16:39 | XMS_ITS | Encounter Summary ---
Author Organization [employer] Address [address] [facility] [address] 7[address] [place] [address] Care Team Providers Care Tripe Washer Name Role Phone Name, Damian MASON Primary Care Provider [phone] Danny Overton Unavailable Unavailable Encounter Details Date Type Department Care Team (Latest Contact Info) Description 09/28/2024 Outside Procedure [facility] OPTOMETRY [address] [place] [address] Ryan, Milagro, OD [address] [place] [address] Presbyopia (Primary Dx) Social History Tobacco Use [...] Description 11/02/2024 10:00 AM EDT Office Visit [facility] DENTAL [address] [place] [address] Negrito Romeo, BDS [address] [place], [place] [phone] 12/19/2024 4:00 PM EDT Office Visit [facility] MEDICINE [address] [place] [address] Name, MD Damian [address] [place] [address] documented as of this encounter Visit Diagnoses Diagnosis Presbyopia- Primary documented in this encounter Additional Health Concerns Assessment Noted Time PHQ-9 Depression Total Score: 9 01/11/20 24 10:18 AM EDT documented as of this encounter Care Teams Tripe Washer Relationship Specialty Start Date End Date Name, MD Damian [address] [place] [address] PCP - General Family Medicine 05/28/17 Danny Overton FNP [address] [place] [address] Nurse Practitioner Family Medicine 06/29/23 documented as of this encounter
--- OUTSIDE RECORDS SUMMARY | 2024-10-16 16:39 | XMS_ITS | Encounter Summary ---
Author Organization [employer] Address [address] [facility] [address] 7t [place] [address] Care Team Providers Care Cable Installer Repairer Helper Name Role Phone Name, Damian MASON Primary Care Provider [phone] Danny Overton Unavailable Unavailable Reason for Visit * Reason Comments Med Refill Encounter Details Date Type Department Care Team (Late st Contact Info) Description 02/10/2024 Refill [facility] & PEDS [address] [place] [address] Danny Overton FNP Anxiety disorder, unspecified type [...] AM EDT Office Visit [facility] DENTAL [address] [place] [address] Negrito Romeo BDS [address] [place] [address] 12/19/2024 4:00 PM EDT Office Visit [facility] MEDICINE [address] [place] [address] Name, MD Damian [address] [place] [address] documented as of this encounter Visit Diagnoses Diagnosis Anxiety disorder, unspecified type documented in this encounter Additional Health Concerns Assessment Noted Time PHQ-9 Depression Total Score: 9 01/11/20 24 10:18 AM EDT documented as of this encounter Care Teams Cable Installer Repairer Helper Relationship Specialty Start Date End Date Name, MD Damian [address] [place] [address] PCP - General Family Medicine 05/28/17 Danny Overton FNP [address] [place] [address] Nurse Practitioner Family Medicine 06/29/23 documented as of this encounter
--- OUTSIDE RECORDS SUMMARY | 2024-10-16 16:39 | XMS_ITS | Encounter Summary ---
Author Organization [employer] Address [address] [facility] 7t [place] [address] Care Team Providers Care Associate Professor Of Education Name Role Phone Name, Damian MASON Primary Care Provider [phone] Danny Overton Unavailable Unavailable Reason for Visit * Reason Comments Med Refill Encounter Details Date Type Department Care Team (Late st Contact Info) Description 07/14/2024 Refill [facility] MEDICINE [address] [place] [address] Rhona Strauss MD [address] [place] [address] High cholesterol Social History Tobacco Use Types [...] Description 11/02/2024 10:00 AM EDT Office Visit [facility] DENTAL [address] [place] [address] Negrito Romeo, BDS [address] [place] [address] 12/19/2024 4:00 PM EDT Office Visit [facility] MEDICINE [address] [place] [phone] NameDamian MD [address] [place] [address] documented as of this encounter Visit Diagnoses Diagnosis High cholesterol Pure hypercholesterolemia documented in this encounter Additional Health Concerns Assessment Noted Time PHQ-9 Depression Total Score: 9 01/11/20 24 10:18 AM EDT documented as of this encounter Care Teams Associate Professor Of Education Relationship Specialty Start Date End Date Name, MD Damian [address] [place] [address] PCP - General Family Medicine 05/28/17 Danny Overton FNP [address] [place] [address] Nurse Practitioner Family Medicine 06/29/23 documented as of this encounter
--- OUTSIDE RECORDS SUMMARY | 2024-10-16 16:39 | XMS_ITS | Clinical Summary ---
Author Organization [facility] Address [address] [place] [address] Care Team Providers Care Cue Selector Name Role Phone Name, Dmaian MASON Primary Care Provider [phone] Allergies Active Allergy Reactions Criticality Noted Date [...] (06/27/2020): Added automatically from request for surgery [id number] Social History Tobacco Use Types Packs/Day Years [...] 10:08 AM 03/20/2021 12:47 PM Care Teams Cue Selector Relationship Specialty Start Date End Date Name, MD Damian [address] [place] [address] PCP - General Internal Medicine 06/28/20
--- OUTSIDE RECORDS SUMMARY | 2024-10-16 16:39 | XMS_ITS | Encounter Summary ---
Author Organization [employer] Address [address] [facility] 7 [place] [address] Care Team Providers Care Junior Software Engineer Name Role Phone Damian Bauman MD Primary Care Provider [phone] Danny Overton Unavailable Unavailable Reason for Referral * Consultation (Routine) - Closed Specialty Diagnoses / Procedures Referred By Contac t Referred To Contact Psychiatry / Behavioral Health Diagnoses Bipolar I disorder (CMS/HCC) Anxiety disorder, unspecified type Damian Bauman MD [address] [place] [address] Phone: tel: fax: Francisco Atkins PMHNP [address] [place] [address] Phone: tel: fax: Referral ID Status Reason Start Date Expiration Date V isits Requested Visits Authorized [id number] Closed Specialty Services Required 09/20/2024 09/20/2025 1 1 Reason for Visit * Reason Comments Follow-up Encounter Details Date Type Department Care Team (Late st Contact Info) Description 09/19/2024 3:45 PM EST Office Visit [facility] MED[facility]INE [address] [place] [address] Damian Bauman MD [address] [place] [address] Type 2 diabetes mellitus with hyperglycemia, without [...] hemoglobin A1c. She tells me she traveled [facility] to visit her mom hoping to reconnect [...] hyperglycemia, without long-term current use of insulin ([facility]) Comments: I recommend to avoid sweets and [...] Random Urine W/Creatinine; Future Bipolar I disorder ([facility]) Comments: I will refill her psychiatric meds. [...] Description 11/02/2024 10:00 AM EDT Office Visit [facility] [address] [place], [place] [phone] Negrito Romeo BDS [address] [place], [place] [phone] 12/19/2024 4:00 PM EDT Office Visit [facility] MED[facility] [address] [place] [address] [phone] Damian Bauman MD [address] [place] [phone] Scheduled Orders Name Type Priority Associated Diagnoses Orde r Schedule Comprehensive Metabolic Panel Lab Routine Type 2 diabetes mellitus with hyperglycemia, without long-term current use of insulin ([facility]) Essential hypertension Expected: 09/19/2024 (Approximate), Expires: 09/19/2025 Albumin, Random Urine W/Creatinine Lab Routine Type 2 diabetes mellitus with hyperglycemia, without long-term current use of insulin ([facility]) Essential hypertension Expected: 09/19/2024 (Approximate), Expires: 09/19/2025 TSH W/Reflex to FT4 Lab Routine Bipolar I disorder ([facility]) Anxiety disorder, unspecified type Expected: 09/19/2024 (Approximate), Expires: 09/19/2025 Scheduled Referrals Name Type Priority Associated Diagnoses Orde r Schedule Referral to Behavioral Health Outpatient Referral Routine Bipolar I disorder ([facility]) Anxiety disorder, unspecified type Expected: 09/20/2024 (Approximate), Expires: 09/20/2025 documented as of this encounter Procedures Procedure Name Priority Date/Time Associated Diagnosis Comments CBC WITH AUTO DIFFERENTIAL Routine 10/16/2024 12:50 PM EDT Type 2 diabetes mellitus with hyperglycemia, without long-term current use of insulin ([facility]) Essential hypertension POCT GLYCATED HEMOGLOBIN, TOTAL Routine 09/19/2024 4:36 PM EST Type 2 diabetes mellitus with hyperglycemia, without long-term current use of insulin ([facility]) POCT GLUCOSE Routine 09/19/2024 4:32 PM EST Type 2 diabetes mellitus with hyperglycemia, without long-term current use of insulin ([facility]) documented in this encounter Results * (ABNORMAL) CBC auto differential (10/16/2024 12:50 PM EDT) White Blood Count 11.1(H) 4.8 - 10.8 X10*3/uL [facility] Red Blood Count 5.49 4.20 - 5.50 X10*6/uL [facility] Hemoglobin 14.8 12.0 - 16.0 g/dl [facility] Hematocrit 44.1 37.0 - 47.0 % [facility] Mean Corpuscular Volume 80.3 80.0 - 98.0 fL [facility] Mean Corpuscular Hemoglobin 27.0 27.0 - 33.0 pg [facility] Mean Corpuscular HGB Conc 33.6 31.0 - 35.0 g/dl [facility] Red Cell Distribution Width 12.9 11.0 - 16.0 % [facility] Platelet Count 320 160 - 400 X10*3/uL [facility] Mean Platelet Volume 12.3 9.4 - 12.3 fL [facility] Neutrophils Percent Auto 58.5 45 - 73 % [facility] Imm Gran Pct Auto 0.4 0.0 - 0.4 % [facility] Lymphocytes Percent Auto 28.0 20 - 40 % [facility] Monocytes Percent Auto 7.4 2 - 11 % [facility] Eosinophils Percent Auto 5.2(H) 0 - 4 % [facility] Basophils Percent Auto 0.5 0 - 2 % [facility] NRBC Pct Auto 0.0 0.0 - 0.2 /100WBC [facility] Neutrophils Absolute Auto 6.5 2.0 - 8.3 x10*3/uL [facility] Imm Gran Abs Auto 0.05(H) 0.00 - 0.03 X10*3/uL [facility] Lymphocytes Absolute Auto 3.1 1.2 - 4.9 X10*3/uL [facility] Monocytes Absolute Auto 0.8 0.1 - 1.2 X10*3/uL [facility] Eosinophils Absolute Auto 0.6(H) 0.0 - 0.4 X10*3/uL [facility] Basophils Absolute Auto 0.1 0.0 - 0.2 X10*3/uL [facility] NRBC Abs Auto 0.000 0.0 - 0.012 X10*3/uL [facility] Blood Venous blood specimen / Unknown 10/16/2024 12:50 PM EDT 10/16/2024 4:02 PM EDT Damian Bauman MD LAB BLOOD ORDERABLES Final Resul t [facility] [address] [place] [phone] * (ABNORMAL) POCT HGB A1C (09/19/2024 4:36 [...] Media Lot # [id number] Lot# Expiration Date [id number] Blood Capillary blood specimen / Unknown 09/19/2024 4:32 PM EST Damian Bauman MD POINT OF CARE TEST ENTER/EDIT OR DERABLES Final Result documented in this encounter Visit Diagnoses Diagnosis Type 2 diabetes mellitus with hyperglycemia, without long-term current use of insulin ([facility])- Primary Essential hypertension Unspecified essential hypertension Bipolar I disorder ([facility]) Bipolar I disorder, most recent episode (or current) unspecified Anxiety disorder, unspecified type High cholesterol Pure hypercholesterolemia documented in this encounter Additional Health Concerns Assessment Noted Time PHQ-9 Depression Total Score: 9 01/11/20 24 10:18 AM EDT documented as of this encounter Care Teams Junior Software Engineer Relationship Specialty Start Date End Date Name, [place] [address] PCP - General Family Medicine 05/28/17 Danny Overton FNP [address] [facility] [place] [address] Nurse Practitioner Family Medicine 06/29/23 documented as of this encounter
--- OUTSIDE RECORDS SUMMARY | 2024-10-16 16:39 | XMS_ITS | Encounter Summary ---
Author Organization [employer] Address 75 [facility] 7t [place] [address] Care Team Providers Care Applied Psychology Chair Name Role Phone Name, Damian MASON Primary Care Provider [phone] Danny Overton Unavailable Unavailable Encounter Details Date Type Department Care Team (Late st Contact Info) Description 12/22/2023 Telephone [facility] MED[facility]INE [address] [place] [address] Name, MD Damian [address] [place] [address] Social History Tobacco Use Types Packs/Day Years [...] 4:25 PM EDT Consulted with Robert nurse fleet service manager re: request below. Robert states [employer] form was sent last summer and pt needs to submit a new form to medical records with her [employer] account number on it. Robert also states to confirm pt's phone number and address as phone number listed is a [place] number andform from last year lists a [place] address. T/C to pt to advise. No answer. No option to leave v/m as v/m is full. If pt returns call, please transfer to Blue team nurse fabric coating supervisor as we are unable to contact pt. Request for pcp to contact [employer] will be sent to pcp. * Telephone Encounter - Sharlene Donis RN - 12/23/2023 4:20 PM EDT ----- Message from Nurse Sharlene Rodriguez sent at 12/23/2023 9:12 AM EDT ----- Regarding: [facility] Please see T/C From yesterday, [...] - 12/22/2023 4:25 PM EDT T/C to [phone] for below message, and to advise to contact form department for below request, No answer. Mail box is full. Not able to LVM. * Telephone Encounter - Katarina Sosa - 12/22/2023 3:44 PM EDT Tc from pt stating she was advised by [employer] provider needs to call so services can be restored. Pt confirmed medical records did send form to [employer]. Pt requesting provider to call [employer] as done previously. States nurse calls every year . Patient disconnected call. documented in this encounter Plan of Treatment Upcoming Encounters Date Type Department Care Team (Late st Contact Info) Description 11/02/2024 10:00 AM EDT Office Visit [facility] [address] [place] [address] Glennarsalanmaryana Sapnabrad, BDS [address] [place] [address] 12/19/2024 4:00 PM EDT Office Visit [facility] MEDICINE [address] [place] [address] NameDamian MD [address] [place] [address] documented as of this encounter Visit Diagnoses Not on filedocumented in this encounter Additional Health Concerns Assessment Noted Time PHQ-9 Depression Total Score: 18 024 10:21 AM EDT documented as of this encounter Care Teams Applied Psychology Chair Relationship Specialty Start Date End Date NameDamian MD [address] [place] [address] PCP - General Family Medicine 05/28/17 Danny Overton FNP [address] [place] [address] Nurse Practitioner Family Medicine 06/29/23 documented as of this encounter
--- OUTSIDE RECORDS SUMMARY | 2024-10-16 16:39 | XMS_ITS | Encounter Summary ---
Author Organization [employer] Address 75 [facility] 7t [place] [address] Care Team Providers Care Director Of Trauma Name Role Phone Name, Damian MASON Primary Care Provider [phone] Danny Overton Unavailable Unavailable Reason for Visit * Reason Onset Date Comments Med Refill 02/09/2024 PATIENT WALKED I N REQUESTING MED REFILL FOR INHALER ALBUTEROL PATIENT STATED SHE NEEDS IT Encounter Details Date Type Department Care Team (Late st Contact Info) Description 02/09/2024 Telephone [facility] MED[facility]INE 230 [place], [place] [phone] Name, MD Damian 230 [place], [place] [phone] Med Refill (PATIENT WALKED IN REQUESTING MED [...] the past 12 months, has t he [employer], gas, oil or water [employer] threatened to shut off services in your [...] 9:00 AM EDT T/C to pt. On [phone] to inform that medication was sent to pharmacy, no answer. LVM to call back on [phone]. * Telephone Encounter - Nicole Israel - [...] 400 MG capsule To be sent to: [facility]/pharmacy #[id number] - [address] documented in this encounter Plan of Treatment Upcoming Encounters Date Type Department Care Team (Late st Contact Info) Description 11/02/2024 10:00 AM EDT Office Visit [facility] 91 [place], [place] [phone] Negrito Romeo, BDS [address] [place], [place] [phone] 12/19/2024 4:00 PM EDT Office Visit [facility] MEDICINE [address] [place] [address] Name, MD Damian [address] [place] [address] documented as of this encounter Visit Diagnoses Not on filedocumented in this encounter Additional Health Concerns Assessment Noted Time PHQ-9 Depression Total Score: 9 01/11/20 24 10:18 AM EDT documented as of this encounter Care Teams Director Of Trauma Relationship Specialty Start Date End Date Name, MD Damian [address] [place] [address] PCP - General Family Medicine 05/28/17 Danny Overton FNP [address] [place] [address] Nurse Practitioner Family Medicine 06/29/23 documented as of this encounter
--- OUTSIDE RECORDS SUMMARY | 2024-10-16 16:39 | XMS_ITS | Encounter Summary ---
Author Organization [employer] Address 75 [facility] 7t [place] [address] Care Team Providers Care Supervisor Painting Department Name Role Phone Name, Damian MASON Primary Care Provider [phone] Danny Overton Unavailable Unavailable Encounter Details Date Type Department Care Team (Latest Contact Info) Description 03/10/2021 Abstract [facility] CONVERSIONS Dental, Provider, DDS Social History Tobacco [...] 10:00 AM EDT Office Visit [facility] D[facility] 91 [place] [address] Negrito Romeo, BDS 91 [place], [place] [phone] 12/19/2024 4:00 PM EDT Office Visit [facility] MEDICINE 230 [place], [place] [phone] Name, MD Damian 230 [place], [place] [phone] documented as of this encounter Visit Diagnoses Not on filedocumented in this encounter Care Teams Supervisor Painting Department Relationship Specialty Start Date End Date Name, MD Damian 230 [facility] [address] PCP - General Family Medicine 05/28/17 Danny Overton FNP 230 [place] [address] Nurse Practitioner Family Medicine 06/29/23 documented as of this encounter
--- OUTSIDE RECORDS SUMMARY | 2024-10-16 16:39 | XMS_ITS | Encounter Summary ---
Author Organization [employer] Address 75 [facility] 7t [place] [address] Care Team Providers Care Cardiac Nurse Practitioner Name Role Phone Name, Damian MASON Primary Care Provider [phone] Danny Overton Unavailable Unavailable Reason for Visit * Reason Comments Filling Encounter Details Date Type Department Care Team (Late st Contact Info) Description 10/16/2024 11:00 AM EDT Office Visit [facility] DENTAL 91 [place], [place] [phone] Negrito Romeo BDRavi 91 [place], [place] [phone] Social History Tobacco Use Types Packs/Day Years [...] as of this encounter Progress Notes * Negrito Romeo BDS - 10/16/2024 11:00 AM EDT Images from the original note were not included. Patient seen composite methodist on tooth #20. Medical History Reviewed. Today's treatment reason- Existing methodist with poor marginal integrity, Caries noted with explorer, recurrent caries noted, Decay present on radiograph. Decay excavated and tooth restored using matrix band/mylar strip and wedges as needed. Cavity Cleanser-CHX. Desensitizer - Gluma. Base-Ionosit. Dycal placed - Yes. Etch tooth - Yes. Coping Machine Assembler-i-bond. Composite material - [employer], Hartly Joyce. Vitapan classical A3.5. Contoured, occlusion checked and adjusted, established proximal contacts, finished, polished. Patient made aware of post-op sensitivity, patient understood and satisfied. Patient has extensive composite methodist on 03-18,keeps fracturing.Patient advised crown #8-`10 in order maintain structural integrity and preserves function documented in this encounter Plan of Treatment Upcoming Encounters Date Type Department Care Team (Late st Contact Info) Description 11/02/2024 10:00 AM EDT Office Visit [facility] DENTAL 91 [place], [place] [phone] Negrito Romeo BDS [address] [place] [address] [phone] 12/19/2024 4:00 PM EDT Office Visit [facility] MEDICINE [address] [place] [address] [phone] Name, MD Damian [address] [place] [address] [phone] Scheduled Orders Name Type Priority Associated Diagnoses Orde r Schedule 8 8 CROWN - PORCELAIN/CERAMIC Dental Routine 1 Occurrences starting 10/16/2024 9 9 CROWN - PORCELAIN/CERAMIC Dental Routine 1 Occurrences starting 10/16/2024 8 8 CROWN PREP Dental Routine 1 Occurren vickie starting 10/16/2024 9 9 CROWN PREP Dental Routine 1 Occurren vickie starting 10/16/2024 10 10 CROWN PREP Dental Routine 1 Occurr ences starting 10/16/2024 10 10 CROWN - PORCELAIN/CERAMIC Dental Routine 1 Occurrences starting 10/16/2024 documented as of this encounter Procedures Procedure Name Priority Date/Time Associated Diagnosis Comments 20 DO RESIN-BASED COMPOSITE - 2 SURF, POSTERIOR Routine 10/16/2024 11:00 AM EDT CASE PRESENTATION, DETAILED AND EXTENSIVE TREATMENT PLANNING Routine 10/16/2024 11:00 AM EDT documented in this encounter Visit Diagnoses Not on filedocumented in this encounter Additional Health Concerns Assessment Noted Time PHQ-9 Depression Total Score: 9 01/11/20 24 10:18 AM EDT documented as of this encounter Care Teams Cardiac Nurse Practitioner Relationship Specialty Start Date End Date NameDamian MD [address] [place] [address] [phone] PCP - General Family Medicine 05/28/17 Danny Overton FNP 230 [place] [address] Nurse Practitioner Family Medicine 06/29/23 documented as of this encounter
--- OUTSIDE RECORDS SUMMARY | 2024-10-16 16:39 | XMS_ITS | Encounter Summary ---
Author Organization [employer] Address 75 [facility] 7t [place] [address] Care Team Providers Care Paperhanger And Painter Name Role Phone Name, Damian MASON Primary Care Provider [phone] Danny Overton Unavailable Unavailable Reason for Visit * Reason Onset Date Comments chartprep 09/18/2024 Encounter Details Date Type Department Care Team (Late st Contact Info) Description 09/18/2024 Telephone [facility] MEDICINE [address] [place] [address] Jorge Atkins [place] chartprep Social History Tobacco [...] the past 12 months, has t he [employer], gas, oil or water [employer] threatened to shut off services in your [...] Description 11/02/2024 10:00 AM EDT Office Visit [facility] DENTAL [address] [place] [address] [phone] Negrito Romeo BDS [address] [place] [address] [phone] 12/19/2024 4:00 PM EDT Office Visit [facility] MEDICINE [address] [place] [address] Name, MD [place] [address] documented as of this encounter Visit Diagnoses Not on filedocumented in this encounter Additional Health Concerns Assessment Noted Time PHQ-9 Depression Total Score: 9 01/11/20 24 10:18 AM EDT documented as of this encounter Care Teams Paperhanger And Painter Relationship Specialty Start Date End Date Name, MD [place] [address] PCP - General Family Medicine 05/28/17 Danny Overton FNP [address] [place] [address] Nurse Practitioner Family Medicine 06/29/23 documented as of this encounter
--- OUTSIDE RECORDS SUMMARY | 2024-10-16 16:39 | XMS_ITS | Encounter Summary ---
Author Organization [employer] Address [address] [facility] [address] 7t [place] [address] Care Team Providers Care Supervisor Sunglasses Name Role Phone Name, Damian MASON Primary Care Provider [phone] Danny Overton Unavailable Unavailable Reason for Visit * Reason Comments Headache Anxiety Encounter Details Date Type Department Care Team (Late st Contact Info) Description 10/14/2024 9:20 AM EST Office Visit [facility] 230 [place], [place] [phone] Name, MD Damian 230 [place], [place] [phone] Essential hypertension (Primary Dx); Anxiety disorder, unspecified [...] Description 11/02/2024 10:00 AM EDT Office Visit [facility] 91 [place], [place] [phone] Negrito Romeo, BDS 91 [place], [place] [phone] 12/19/2024 4:00 PM EDT Office Visit [facility] MED[facility]INE [address] [place] [address] Damian Bauman MD 230 [place] [address] documented as of this encounter Visit Diagnoses Diagnosis Essential hypertension- Primary Unspecified essential hypertension Anxiety disorder, unspecified type documented in this encounter Additional Health Concerns Assessment Noted Time PHQ-9 Depression Total Score: 9 01/11/20 24 10:18 AM EDT documented as of this encounter Care Teams Supervisor Sunglasses Relationship Specialty Start Date End Date Name, MD Damian [address] [place] [address] PCP - General Family Medicine 05/28/17 Danny Overton FNP [address] [place] [address] Nurse Practitioner Family Medicine 06/29/23 documented as of this encounter
--- OUTSIDE RECORDS SUMMARY | 2024-10-16 16:39 | XMS_ITS | Clinical Summary ---
Author Organization [facility] ity Address [address] [place] [address] Care Team Providers Care Desk Clerks Supervisor Name Role Phone Name, Damian MASON Primary Care Provider [phone] Social History Tobacco Use Types Packs/Day Years [...] age to complete this topic Care Teams Desk Clerks Supervisor Relationship Specialty Start Date End Date Name, MD Damian [address] [place] [address] PCP - General Internal Medicine 05/27/20
--- OUTSIDE RECORDS SUMMARY | 2024-10-16 16:39 | XMS_ITS | Encounter Summary ---
Author Organization [employer] Address 75 [facility] 7t [place] [address] Care Team Providers Care Shade Bander Name Role Phone Name, Damian MASON Primary Care Provider [phone] Danny Overton Unavailable Unavailable Reason for Visit * Reason Comments Med Refill Encounter Details Date Type Department Care Team (Late st Contact Info) Description 09/16/[address] [facility] MEDICINE 230 [place] [address] Camila Looney NP [address] [place] [address] Anxiety disorder, unspecified type Social History Tobacco [...] Description 11/02/2024 10:00 AM EDT Office Visit [facility] D[facility] [address] [place] [address] Negrito Romeo, BDS 91 [place] [address] 12/19/2024 4:00 PM EDT Office Visit [facility] MEDICINE [address] [place] [address] [phone] Name, MD Damian 230 [place] [address] documented as of this encounter Visit Diagnoses Diagnosis Anxiety disorder, unspecified type documented in this encounter Additional Health Concerns Assessment Noted Time PHQ-9 Depression Total Score: 9 01/11/20 24 10:18 AM EDT documented as of this encounter Care Teams Shade Bander Relationship Specialty Start Date End Date Name, MD Damian 230 [place] [address] PCP - General Family Medicine 05/28/17 Danny Overton FNP 230 [place] [address] Nurse Practitioner Family Medicine 06/29/23 documented as of this encounter
--- OUTSIDE RECORDS SUMMARY | 2024-10-16 16:39 | XMS_ITS | Encounter Summary ---
Author Organization [employer] Address 75 [facility] 7t [place] [address] Care Team Providers Care Filer Helper Name Role Phone Name, Damian MASON Primary Care Provider [phone] Danny Overton Unavailable Unavailable Encounter Details Date Type Department Care Team (Late Contact Info) Description 10/14/2022 Orders Only [facility] [address] [place] [address] Peg Schulz LPN Social History Tobacco Use [...] 11/02/2024 10:00 AM EDT Office Visit [facility] DENT[facility] 91 [place], [place] 1980885 Negrito Romeo BDS 91 [place], [place] [phone] 12/19/2024 4:00 PM EDT Office Visit [facility] MEDICINE 230 [place], [place] [phone] Name, MD Damian [address] [place] [address] documented as of this encounter Visit Diagnoses Not on filedocumented in this encounter Additional Health Concerns Assessment Noted Time PHQ-9 Depression Total Score: 1 10/14/19 23 8:49 AM EST documented as of this encounter Care Teams Filer Helper Relationship Specialty Start Date End Date Name, MD Damian 230 [place] [address] PCP - General Family Medicine 05/28/17 Danny Overton FNP 230 [place] [address] Nurse Practitioner Family Medicine 06/29/23 documented as of this encounter
--- OUTSIDE RECORDS SUMMARY | 2024-10-16 16:39 | XMS_ITS | Encounter Summary ---
Author Organization [employer] Address [address] [facility] 7t [place] [address] Care Team Providers Care First Mate Name Role Phone Name, Damian MASON Primary Care Provider [phone] Danny Overton Unavailable Unavailable Encounter Details Date Type Department Care Team (Late st Contact Info) Description 09/27/2024 1:45 PM EST Office Visit [facility] OPTOMETRY [address] [place] [address] Ryan, Milagro, OD [address] [place] [address] Regular astigmatism of both eyes (Primary Dx) [...] 10:00 AM EDT Office Visit [facility] DENTAL 91 [place], [place] [phone] Negrito Romeo BDS 91 [place], [place] [phone] 12/19/2024 4:00 PM EDT Office Visit [facility] MEDICINE [address] [place] [address] Name, MD Damian [address] [place] [address] documented as of this encounter Visit Diagnoses Diagnosis Regular astigmatism of both eyes- Primary documented in this encounter Additional Health Concerns Assessment Noted Time PHQ-9 Depression Total Score: 9 01/11/20 24 10:18 AM EDT documented as of this encounter Care Teams First Mate Relationship Specialty Start Date End Date Name, MD Damian [address] [place] [address] PCP - General Family Medicine 05/28/17 Danny Overton FNP [address] [place] [address] Nurse Practitioner Family Medicine 06/29/23 documented as of this encounter
--- OUTSIDE RECORDS SUMMARY | 2024-10-16 16:39 | XMS_ITS | Encounter Summary ---
Author Organization [facility] Address [address] [place] [address] Care Team Providers Care Director Mba Name Role Phone Unknown Primary Care Provider [phone] Name, Damian MASON Primary Care Provider Encounter Details Date Type Department Care Team (Late st Contact Info) Description 03/19/2020 Lab Requisition Day [facility] [address] [place] [phone] Ran Sims PA-C [address] [place] [address] Encounter for laboratory testing for COVID-19 virus [...] NOT DETECTED NOT DETECTED 03/20/2020 5:00 PM [facility] Comment: A Not Detected (negative) test result [...] providers and patients using the following websites: https://www.[employer].FitBark/home/Covid-19/HCP/QuestLDTP/ fact-sheet https://www.[employer].com/home/Covid-19/Patients/QuestLDTP/ fact-sheet.html This test has been authorized by the FDA under an Emergency Use Authorization (EUA) for use by authorized laboratories. Due to the current public health emergency, [facility] is receiving a high volume of samples [...] about COVID-19 can be found at the [facility] website: www.Taggled/Covid19. Microbiology Nasopharyngeal swab / Unknown 03/19/2020 10:45 AM EDT 03/19/2020 10:45 AM EDT [facility]ative [facility]/20/2020 5:00 PM EDT Performing Organization Information: ?Site ID: [id number] ?Name: [facility] ?Address: [address] [place] [address],[place] [address] ?Director: ROMMEL MAHARAJ MD [facility]formed at [facility] License number [id number] Ran Sims PA-Dave [employer] Performing Organization Address City/State/[facility] Co de Phone Number [facility] documented in this encounter Visit Diagnoses Diagnosis Encounter for laboratory testing for COVID-19 virus documented in this encounter Care Teams Director Mba Relationship Specialty Start Date End Date Unknown Unknow Provider Address PCP - General 07/05/19 06/27/20 Name, MD Damian [address] [place] [address] PCP - General Internal Medicine 06/28/20 documented as of this encounter
--- OUTSIDE RECORDS SUMMARY | 2024-10-16 16:39 | XMS_ITS | Encounter Summary ---
Author Organization [employer] Address [address] [facility] [address] 7t [place] [address] Care Team Providers Care Concession Worker Name Role Phone Name, Damian MASON Primary Care Provider [phone] Danny Overton Unavailable Unavailable Encounter Details Date [...] Description 11/02/2024 10:00 AM EDT Office Visit [facility] WM[facility] DENTAL 91 [place] [address] Negrito Romeo, BDS 91 [place], [place] [phone] 12/19/2024 4:00 PM EDT Office Visit [facility] MEDICINE [address] [place] [address] Name, MD Damian [address] [place] [address] documented as of this encounter Visit Diagnoses Not on filedocumented in this encounter Additional Health Concerns Assessment Noted Time PHQ-9 Depression Total Score: 9 01/11/20 24 10:18 AM EDT documented as of this encounter Care Teams Concession Worker Relationship Specialty Start Date End Date NameDamian MD [address] [place] [address] PCP - General Family Medicine 05/28/17 Danny Overton FNP 230 [place] [address] Nurse Practitioner Family Medicine 06/29/23 documented as of this encounter
--- OUTSIDE RECORDS SUMMARY | 2024-10-16 16:39 | XMS_ITS | Encounter Summary ---
Author Organization [employer] Address [address] [facility] 7t [place] [address] Care Team Providers Care E Commerce Architect Name Role Phone Name, Damian MASON Primary Care Provider [phone] Danny Overton Unavailable Unavailable Reason for Visit * Reason Comments Med Refill Encounter Details Date Type Department Care Team (Late st Contact Info) Description 11/21/2023 Refill [facility] MEDICINE [address] [place] [address] Danny Overton FNP Anxiety disorder, unspecified type [...] Description 11/02/2024 10:00 AM EDT Office Visit [facility] DENTAL [address] [place] [address] Negrito Romeo BDS 91 [place] [address] 12/19/2024 4:00 PM EDT Office Visit [facility] MEDICINE [address] [place] [address] Name, MD Damian [address] [place] [address] documented as of this encounter Visit Diagnoses Diagnosis Anxiety disorder, unspecified type documented in this encounter Additional Health Concerns Assessment Noted Time PHQ-9 Depression Total Score: 18 024 10:21 AM EDT documented as of this encounter Care Teams E Commerce Architect Relationship Specialty Start Date End Date Name, MD Damian [address] [place] [address] PCP - General Family Medicine 05/28/17 Danny Overton FNP [address] [place] [address] Nurse Practitioner Family Medicine 06/29/23 documented as of this encounter
--- OUTSIDE RECORDS SUMMARY | 2024-10-16 16:39 | XMS_ITS | Encounter Summary ---
Author Organization [employer] Address 75 [facility] 7t [place] [address] Care Team Providers Care Fruit Harvest Worker Name Role Phone Name, Damian MASON Primary Care Provider [phone] Danny Overton Unavailable Unavailable Encounter Details Date Type Department Care Team (Latest Contact Info) Description 06/18/2022 Abstract [facility] CONVERSIONS Dental, Provider, DDS Social History Tobacco [...] Description 11/02/2024 10:00 AM EDT Office Visit [facility] DENTAL 91 [place] [address] Negrito Romeo, BDS 91 [place], [place] [phone] 12/19/2024 4:00 PM EDT Office Visit [facility] MEDICINE 230 [place], [place] [phone] Name, MD Damian [address] [place], [place] [phone] documented as of this encounter Visit Diagnoses Not on filedocumented in this encounter Care Teams Fruit Harvest Worker Relationship Specialty Start Date End Date Name, MD Damian 230 [place] [address] PCP - General Family Medicine 05/28/17 Danny Overton FNP 230 [place] [address] Nurse Practitioner Family Medicine 06/29/23 documented as of this encounter
--- OUTSIDE RECORDS SUMMARY | 2024-10-16 16:39 | XMS_ITS | Encounter Summary ---
Author Organization [employer] Address [address] [facility] 7t [place] [address] Care Team Providers Care Cook Sauce Name Role Phone Name, Damian MASON Primary Care Provider [phone] Danny Overton Unavailable Unavailable Encounter Details Date Type Department Care Team (Late st Contact Info) Description 09/27/2024 Telephone [facility] WMH DENTAL [address] [place], [place] [phone] Negrito Romeo, BDS [address] [place], [place] [phone] Social History Tobacco Use Types Packs/Day Years [...] for today at 10AM to see Dr. lAejo for sikhism apt. A few mins before patient walked [...] I offered daisy visit for today at [facility]. In which she did say she didn't mind being seen at [facility]. I tried calling but there was no answer. Patient then asked to be rescheduled for here. I booked a new apt with Dr. Alejo. Patient did mentioned she will be going to [facility] now to put in a complaint. In which si believe she tried calling [facility] or atleast pretended like she did. documented in this encounter Plan of Treatment Upcoming Encounters Date Type Department Care Team (Late st Contact Info) Description 11/02/2024 10:00 AM EDT Office Visit [facility] WMH DENTAL [address] [place], [place] [phone] Negrito Romeo, BDS 91 [place], [place] [phone] 12/19/2024 4:00 PM EDT Office Visit [facility] MEDICINE 230 [place] [address] Name, MD Damian [address] [place] [address] documented as of this encounter Visit Diagnoses Not on filedocumented in this encounter Additional Health Concerns Assessment Noted Time PHQ-9 Depression Total Score: 9 01/11/20 24 10:18 AM EDT documented as of this encounter Care Teams Cook Sauce Relationship Specialty Start Date End Date Name, MD Damian [address] [place] [address] PCP - General Family Medicine 05/28/17 Danny Overton FNP [address] [place] [address] Nurse Practitioner Family Medicine 06/29/23 documented as of this encounter
--- OUTSIDE RECORDS SUMMARY | 2024-10-16 16:39 | XMS_ITS | Encounter Summary ---
Author Organization [employer] Address [address] [facility] [address] 7t [place] [address] Care Team Providers Care Restorative Rehab Aide Name Role Phone Name, Damian MASON Primary Care Provider [phone] Danny Overton Unavailable Unavailable Reason for Visit * Reason Comments Med Change Request Encounter Details Date Type Department Care Team ([facility] st Contact Info) Description 12/09/[address] [facility] MED & PEDS [address] [place] [address] Danny Overton FNP Anxiety disorder, unspecified type [...] Description 11/02/2024 10:00 AM EDT Office Visit [facility] WMH DENTAL 91 [place] [address] Negrito Romeo BDS 91 [place] [address] 12/19/2024 4:00 PM EDT Office Visit [facility] MEDICINE [address] [place] [address] Name, MD Damian [address] [place] [address] documented as of this encounter Visit Diagnoses Diagnosis Anxiety disorder, unspecified type documented in this encounter Additional Health Concerns Assessment Noted Time PHQ-9 Depression Total Score: 18 024 10:21 AM EDT documented as of this encounter Care Teams Restorative Rehab Aide Relationship Specialty Start Date End Date Name, MD Damian [address] [place] [address] PCP - General Family Medicine 05/28/17 Danny Overton FNP [address] [place] [address] Nurse Practitioner Family Medicine 06/29/23 documented as of this encounter
--- OUTSIDE RECORDS SUMMARY | 2024-10-16 16:39 | XMS_ITS | Encounter Summary ---
Author Organization [employer] Address [address] [facility] [address] 7t [place] [address] Care Team Providers Care Health Diagnostics Teacher Name Role Phone Name, Damian MASON Primary Care Provider [phone] Danny Overton Unavailable Unavailable Encounter Details Date [...] Description 11/02/2024 10:00 AM EDT Office Visit [facility] WMH DENTAL 91 [place] [address] Negrito Romeo, BDS 91 [place], [place] [phone] 12/19/2024 4:00 PM EDT Office Visit [facility] MEDICINE [address] [place] [address] Name, MD Damian [address] [place] [address] documented as of this encounter Visit Diagnoses Not on filedocumented in this encounter Additional Health Concerns Assessment Noted Time PHQ-9 Depression Total Score: 9 01/11/20 24 10:18 AM EDT documented as of this encounter Care Teams Health Diagnostics Teacher Relationship Specialty Start Date End Date NameDamian MD [address] [place] [address] PCP - General Family Medicine 05/28/17 Danny Overton FNP 230 [place] [address] Nurse Practitioner Family Medicine 06/29/23 documented as of this encounter
--- OUTSIDE RECORDS SUMMARY | 2024-10-16 16:39 | XMS_ITS | Encounter Summary ---
Author Organization [employer] Address [address] [facility] [address] 7t [place] [address] Care Team Providers Care Geriatric Nursing Assistant Name Role Phone Name, Damian MASON Primary Care Provider [phone] Danny Overton Unavailable Unavailable Encounter Details Date Type Department Care Team (Late st Contact Info) Description 06/27/2023 Abstract [facility] MEDICINE [address] [place] [address] Tamie Salazar Social History Tobacco Use Types [...] Description 11/02/2024 10:00 AM EDT Office Visit [facility] WMH DENTAL 91 [place] [address] Negrito Romeo BDS 91 [place], [place] [phone] 12/19/2024 4:00 PM EDT Office Visit [facility] MEDICINE [address] [place] [address] Name, MD Damian [address] [place] [address] documented as of this encounter Visit Diagnoses Not on filedocumented in this encounter Additional Health Concerns Assessment Noted Time PHQ-9 Depression Total Score: 3 04/29/20 23 8:55 AM EDT documented as of this encounter Care Teams Geriatric Nursing Assistant Relationship Specialty Start Date End Date Name, MD Damian [address] [place] [address] PCP - General Family Medicine 05/28/17 Danny Overton FNP [address] [place] [address] Nurse Practitioner Family Medicine 06/29/23 documented as of this encounter
--- OUTSIDE RECORDS SUMMARY | 2024-10-16 16:39 | XMS_ITS | Encounter Summary ---
Author Organization [employer] Address [address] [facility] 7t [place] [address] Care Team Providers Care Shuttleless Loom Weaver Name Role Phone Name, Damian MASON Primary Care Provider [phone] Danny Overton Unavailable Unavailable Reason for Visit * Reason Onset Date Comments Med Refill 10/13/2024 Encounter Details Date Type Department Care Team (Late st Contact Info) Description 10/13/2024 Telephone [facility] MEDICINE [address] [place], [place] [phone] Name, MD Damian 230 [place], [place] [phone] Med Refill Social History Tobacco Use Types [...] 10/13/2024 3:28 PM EST Per review of [employer] 10/13/24 pt last filled a 30 day supply of Clonazepam 1 mg on 09/19/24. T/C to pt for status check. Pt c/o headaches and elevated BP and increased anxiety. States she has no BP monitor. Pt reports that she was previously taking the clonazepam BID x 5 years. States that her psych prescriber retired and she now has no hitting coach or counselor. Pt states that she recently [...] 1 MG tablet To be sent to: [facility]/pharmacy #[id number] *pt currently out of medication. Pt requesting for it to be prescribed 2x a day documented in this encounter Plan of Treatment Upcoming Encounters Date Type Department Care Team (Late st Contact Info) Description 11/02/2024 10:00 AM EDT Office Visit [facility] WMH DENTAL [address] [place], [place] [phone] Negrito Romeo, BDS 91 [place], [place] [phone] 12/19/2024 4:00 PM EDT Office Visit [facility] MEDICINE [address] [place] [address] [phone] NameDamian MD [address] [place] [address] documented as of this encounter Visit Diagnoses Not on filedocumented in this encounter Additional Health Concerns Assessment Noted Time PHQ-9 Depression Total Score: 9 01/11/20 24 10:18 AM EDT documented as of this encounter Care Teams Shuttleless Loom Weaver Relationship Specialty Start Date End Date Damian Bauman MD [address] [place] [address] PCP - General Family Medicine 05/28/17 Danny Overton FNP [address] [place] [address] Nurse Practitioner Family Medicine 06/29/23 documented as of this encounter
--- OUTSIDE RECORDS SUMMARY | 2024-10-16 16:39 | XMS_ITS | Encounter Summary ---
Author Organization [employer] Address [address] [place] [address] [place] [address] Care Team Providers Care Spinner Cap Frame Name Role Phone Name, Damian MASON Primary Care Provider [phone] Danny Overton Unavailable Unavailable Reason for Visit * Reason Comments Med Change Request Encounter Details Date Type Department Care Team (Late st Contact Info) Description 10/27/2022 Refill [facility] MEDICINE [address] [place] [address] [phone] Chelsi Kam FNP [address] [place] [address] Dept of [place] [address] Moderate persistent asthma without complication Social History [...] Description 11/02/2024 10:00 AM EDT Office Visit [facility] WMH DENTAL [address] [place] [address] [phone] Negrito Romeo BDS [address] [place] [address] [phone] 12/19/2024 4:00 PM EDT Office Visit [facility] MEDICINE 230 [place] [address] Name, MD Damian [address] [place] [address] documented as of this encounter Visit Diagnoses Diagnosis Moderate persistent asthma without complication documented in this encounter Additional Health Concerns Assessment Noted Time PHQ-9 Depression Total Score: 1 10/14/19 23 8:49 AM EST documented as of this encounter Care Teams Spinner Cap Frame Relationship Specialty Start Date End Date Name, MD Damian [address] [place] [address] PCP - General Family Medicine 05/28/17 Danny Overton FNP [address] [place] [address] Nurse Practitioner Family Medicine 06/29/23 documented as of this encounter
--- OUTSIDE RECORDS SUMMARY | 2024-10-16 16:39 | XMS_ITS | Clinical Summary ---
Author Organization [employer] Address 75 [facility] 7t [place] [address] Care Team Providers Care Cambering Machine Operator Name Role Phone Name, Damian MASON Primary Care Provider [phone] Danny Overton Unavailable Unavailable Allergies Active Allergy [...] hyperglycemia, without long-term current use of insulin ([facility]) Use once a day 100 strip 11 02/28/20 24 Active Lancets misc Use to test blood sugar one times daily 100 each 11 02/28/20 24 Active Blood Glucose Monitoring Suppl (FreeStyle [place] Lite) w/Device kit Use to test blood [...] (02/23/2023): Added automatically from request for surgery [id number] Bipolar I disorder 03/25/2018 Substance abuse 01/21/2018 Crack cocaine use 01/21/2018 Migraine 08/19/2017 Chronic pain 08/19/2017 Posttraumatic stress disorder 05/28/2017 Assessment & Plan (01/11/2024 11:36 AM EDT): With addictive behaviors: Gambling, Alcohol, hx MEE. Irritable and reactive. Confrontational interpersonal relationships. Had been unhappy about perceived poor treatment by [facility] and reported having engaged a railroad brake operator to ya (apparently chief concerns are failure to be connected with counseling and the fact that this provider will be leaving the practice). Today however she says she does not wish to find different health care providers closer to her home but intends to stay with [facility]. She has stopped seeing therapist who wanted [...] q 6 h prn anxiety or sleep. Boring Clonazepam 1 mg BID prn severe anxiety, do not take if she is drinking alcohol. Continue Zolpidem 10 mg at bedtime. Since this provider will be retiring, patient will be transferred to new [facility] psychiatric prescriber. Pt is aware that these appointments will be via televisit, and that the new presc[facility] an [facility]. She gives verbal consent to share protected health information. All her questions were answered and I have wished her well. She agrees with the plan. Assessment & Plan (11/16/2023 11:45 AM EDT): With addictive behaviors: Gambling, Alcohol, hx MEE. Irritable and reactive. Has recently experienced multiple confrontational interpersonal relationships. Had been unhappy about perceived poor treatment by [facility] and reports having engaged a railroad brake operator to ya (apparently chief concerns are failure to be connected with counseling and the fact that this provider will be leaving the practice). Today she seems calmer, less confrontational, feeling better about relying on [facility] for care. Resumed medications but apparently was [...] q 6 h prn anxiety or sleep. Boring Clonazepam 1 mg BID prn severe anxiety, [...] Very unhappy about perceived poor treatment by [facility] and reports having engaged a railroad brake operator to ya (apparently chief concerns are failure [...] concentration and forgetfulness. Tesha will contact the [facility] for extra support in moments when she is feeling overwhelmed and would like to talk to someone for extra support and crisis if she is having suicidal ideation. Both services are available at all times. She will meet with engineering writer on October 01 at 3:00pm for [...] Clonazepam 1 mg BID prn severe anxiety. Boring Zolpidem 10 mg at bedtime for prn, [...] Clonazepam 1 mg BID prn severe anxiety. Boring Zolpidem 10 mg at bedtime for prn, [...] Clonazepam 1 mg BID prn severe anxiety. Boring Zolpidem 10 mg at bedtime for prn, [...] Clonazepam 1 mg BID prn severe anxiety. Boring Zolpidem 10 mg at bedtime for prn, [...] Clonazepam 1 mg BID prn severe anxiety. Boring Zolpidem 10 mg at bedtime for prn, [...] Clonazepam 1 mg BID prn severe anxiety. Boring Zolpidem 10 mg at bedtime for prn, [...] Description 10/16/2024 11:00 AM EDT Office Visit [address] [phone] Negrito Romeo BDS 10/14/2024 9:20 AM EST Office Visit [facility] W[facility] [address] [place] [address] [phone] Damian Bauman MD Essential hypertension (Primary Dx); Anxiety disorder, unspecified type 10/14/2024 Travel 10/13/2024 Telephone [facility] MEDICINE [address] [place] [phone] Damian Bauman MD Med Refill 10/13/2024 Telephone [facility] MEDICINE [address] [place] [phone] Damian Bauman MD Medication Question 09/28/2024 Outside Procedure [facility] OPTOMETRY [address] [place] [address] Milagro Davis, OD Presbyopia (Primary Dx) 09/27/2024 1:45 PM EST Office Visit [facility] OPTOMETRY [address] [place] [phone] Hamzah Davisn, OD Regular astigmatism of both eyes (Primary Dx) 09/27/2024 Travel 09/27/2024 Telephone [facility] DENTAL [address] [place] [address] [phone] Negrito Romeo, BDS 09/19/2024 3:45 PM EST Office Visit [facility] MEDICINE [address] [place] [address] Damian Bauman MD Type 2 diabetes mellitus with hyperglycemia, without long-term current use of insulin ([facility]) (Primary Dx); Essential hypertension; Bipolar I disorder ([facility]); Anxiety disorder, unspecified type; High cholesterol 09/19/2024 Travel 09/18/2024 Telephone [facility] MEDICINE [address] [place] [address] Jorge Atkins MA chartprep 09/16/2024 Refill [facility] MEDICINE [address] [place] [address] Camila Looney NP Anxiety disorder, unspecified type 08/23/2024 10:30 AM EST Office Visit [facility] OPTOMETRY [address] [place] [address] RyanMilagro, OD Diabetes type 2, no ocular involvement ([facility]) (Primary Dx); Meibomian gland disease, unspecified laterality; Pseudophakia, left eye; Presbyopia 08/23/2024 Travel 08/18/2024 Refill [facility] MEDICINE [address] [place] [address] Damian Bauman MD High cholesterol; Anxiety disorder, unspecified type 08/03/2024 Telephone [facility] MEDICINE [address] [place] [address] Elis Holley MA sep recalls from Last [...] Description 11/02/2024 10:00 AM EDT Office Visit [facility] [address] [place] [address] [phone] Negrito Romeo, BDS [address] [place], [place] [phone] 12/19/2024 4:00 PM EDT Office Visit [facility] MEDICINE [address] [place], [place] [phone] Name, MD Damian [address] [place] [phone] Health Maintenance Due Date Last Done Comments [...] 03/10/2021 Diabetes: Urine Protein Screening 11/14/2024 11/15/2023 Depression Screening 01/10/2025 01/11/2024, 01/11/20 24 Diabetes: Hemoglobin A1C 01/16/2025 025, 09/19/2024, 05/17/2024, Additional history exists Dental X-Ray: Bitewings 02/14/2025 02/14/20 24, 06/18/2022, [...] Procedure Name Priority Date/Time Associated Diagnosis Comments HEMOGLOBIN A1C Routine 10/16/2024 12:50 PM EDT Posttraumatic stress disorder CBC WITH AUTO DIFFERENTIAL Routine 10/16/2024 12:50 PM EDT Type 2 diabetes mellitus with hyperglycemia, without long-term current use of insulin ([facility]) Essential hypertension CASE PRESENTATION, DETAILED AND EXTENSIVE TREATMENT PLANNING Routine 10/16/2024 11:00 AM EDT 20 DO RESIN-BASED COMPOSITE - 2 SURF, POSTERIOR Routine 10/16/2024 11:00 AM EDT POCT GLYCATED HEMOGLOBIN, TOTAL Routine 09/19/2024 4:36 PM EST Type 2 diabetes mellitus with hyperglycemia, without long-term current use of insulin ([facility]/HCC) POCT GLUCOSE Routine 09/19/2024 4:32 PM EST Type 2 diabetes mellitus with hyperglycemia, without long-term current use of insulin (CMS/HCC) PROPHYLAXIS - ADULT Routine 02/14/2024 9 :00 AM EDT BITEWINGS - 4 RADIOGRAPHIC IMAGES Routine 02/14/2024 9:00 AM EDT HEPATITIS C ANTIBODY Routine 11/15/2023 2:00 PM EDT Type 2 diabetes mellitus with hyperglycemia, without long-term current use of insulin ([facility]/HCC) Screening examination for STD (sexually transmitted disease) HIV 1/2 ANTIGEN/ANTIBODY, FOURTH GENERATION W/RFL Routine 11/15/2023 2:00 PM EDT Type 2 diabetes mellitus with hyperglycemia, without long-term current use of insulin ([facility]) Screening examination for STD (sexually transmitted disease) ALBUMIN, RANDOM URINE W/CREATININE Routine 11/15/2023 1:58 PM EDT Type 2 diabetes mellitus with hyperglycemia, without long-term current use of insulin ([facility]) LIPID PANEL, STANDARD Routine 07/08/2021 2:00 PM [...] Relevant to Health Maintenance Results * (ABNORMAL) CBC auto differential (10/16/2024 12:50 PM EDT) White Blood Count 11.1(H) 4.8 - 10.8 X10*3/uL [facility] Red Blood Count 5.49 4.20 - 5.50 X10*6/uL [facility] Hemoglobin 14.8 12.0 - 16.0 g/dl [facility] Hematocrit 44.1 37.0 - 47.0 % [facility] Mean Corpuscular Volume 80.3 80.0 - 98.0 fL [facility] Mean Corpuscular Hemoglobin 27.0 27.0 - 33.0 pg [facility] Mean Corpuscular HGB Conc 33.6 31.0 - 35.0 g/dl [facility] Red Cell Distribution Width 12.9 11.0 - 16.0 % [facility] Platelet Count 320 160 - 400 X10*3/uL [facility] Mean Platelet Volume 12.3 9.4 - 12.3 fL [facility] Neutrophils Percent Auto 58.5 45 - 73 % [facility] Imm Gran Pct Auto 0.4 0.0 - 0.4 % [facility] Lymphocytes Percent Auto 28.0 20 - 40 % [facility] Monocytes Percent Auto 7.4 2 - 11 % [facility] Eosinophils Percent Auto 5.2(H) 0 - 4 % [facility] Basophils Percent Auto 0.5 0 - 2 % [facility] NRBC Pct Auto 0.0 0.0 - 0.2 /100WBC [facility] Neutrophils Absolute Auto 6.5 2.0 - 8.3 x10*3/uL [facility] Imm Gran Abs Auto 0.05(H) 0.00 - 0.03 X10*3/uL [facility] Lymphocytes Absolute Auto 3.1 1.2 - 4.9 X10*3/uL [facility] Monocytes Absolute Auto 0.8 0.1 - 1.2 X10*3/uL [facility] Eosinophils Absolute Auto 0.6(H) 0.0 - 0.4 X10*3/uL [facility] Basophils Absolute Auto 0.1 0.0 - 0.2 X10*3/uL [facility] NRBC Abs Auto 0.000 0.0 - 0.012 X10*3/uL [facility] Blood Venous blood specimen / Unknown 10/16/2024 12:50 PM EDT 10/16/2024 4:02 PM EDT us Damian Name MD LAB BLOOD ORDERABLES Final Resul t [facility] [address] [place] [phone] * (ABNORMAL) Hemoglobin A1c (10/16/2024 12:50 PM EDT) Hemoglobin A1c 10.2(H) <6.0 % [facility] Comment:Hemoglobin A1C Refer ence Range Adults: 4.8 - 6.0 % Non diabetic: < 6.0 % Goal: < 7.0 %Additional Action Suggested: > 8.0 %Note: Hemoglobin A1c results are invalid for patients with abnormal amounts of HbF. Blood transfusions may impact the HbA1c concentration in the patient sample. Estimated Average Glucose 246 mg/dL [facility] Comment:eAG = Estimated ave rage glucose which is %A1C expressed asaverage glucose, using the formula of the V3S-ZhsfjkbIxfaotn Glucose study (ADAG), Diabetes Care, Vol.31,#8,Mar. 2007 10/16/2024 12:5 0 PM EDT 10/16/2024 4:02 PM EDT us Damian Bauman MD LAB BLOOD ORDERABLES Final Resul t [facility] [address] [place] [phone] * (ABNORMAL) POCT HGB A1C (09/19/2024 [...] Media Lot # [id number] Lot# Expiration Date [id number] Blood Capillary blood specimen / Unknown 09/19/2024 4:32 PM EST Result Angel Bauman MD POINT OF CARE TEST ENTER/EDIT OR DERABLES Final Result * Hepatitis C Ab (11/15/2023 2:00 PM EDT) Hepatitis C Antibody Nonreactive Nonreactive [facility] Comment:Antibodies to HCV no t detected; does not exclude early acuteHCV infection. Blood Venous blood specimen / Unknown 11/15/2023 2:00 PM EDT 11/15/2023 4:10 PM EDT us Damian Bauman MD LAB BLOOD ORDERABLES Final Resul t Performing Organization Address City/[facility]/ZIP Co de Phone Number [facility] [address] [place] [phone] * HIV-1/2 Antigen and Antibodies, Fourth Generation, with Reflexes (11/15/2023 2:00 PM EDT) [facility] HIV AB/AG Nonreactive Nonreactive [facility] Comment:HIV-1 p24 Ag and/or HIV-1/HIV-2 Ab not detected.A test result that is nonreactive does not exclude thepossibility of exposure to or infection with HIV-1 and/orHIV-2. Nonreactive results in this assay for individualswith prior exposure to HIV-1 and/or HIV-2 may be due toantigen and antibody levels that are below the limit ofdetection of this assay.The [employer] HIV Ag/Ab Combo assay result andsupplemental assay results should be interpreted inconjunction with the patient's clinical presentation,history and other laboratory results. If the results areinconsistent with clinical evidence, additional testing issuggested to confirm the result. Blood Venous blood specimen / Unknown 11/15/2023 2:00 PM EDT 11/15/2023 4:10 PM EDT us Damian Bauman MD LAB BLOOD ORDERABLES Final Resul t Performing Organization Address City/[facility]/ZIP Co de Phone Number [facility] [address] [place] [phone] * Albumin, Random Urine W/Creatinine (11/15/2023 1:58 PM EDT) Pathologist [facility] Creatinine, Urine 68.58 mg/dL [facility] Microalbumin Urine <5.0 mg/L [facility] Microalbum Creatinine Ratio Ur TNP <30 ug/mg cr [facility] Comment:Unable to calculate albumin/creatinine ratio due to lowmicroalbumin or creatinine result. Urine (Urine, Random) 11/15/2023 1:58 PM EDT 11/15/2023 4:01 PM EDT us Damian Name LAB URINE ORDERABLES Final Resul t [facility] [address] [place] [address] [phone] * LIPID PANEL, STANDARD (07/08/2021 2:00 PM EST) Chol/HDLC Ratio 3.2 <5.0 (calc) [facility] Cholesterol, Total 167 <200 mg/dL [facility] HDL Cholesterol 53 > OR = 50 mg/dL [facility] LDL Cholesterol 91 mg/dL (calc) [facility] Comment: Reference range: <100 ?? [...] ?? Phillip HALL et al. JODY. 2013;310(19): 6813-9011 ?? (http://education.[employer]/faq/IQE081) Non-HDL Cholesterol 114 <130 mg/dL (calc) [facility] Comment: For patients with diabetes plus 1 major ASCVD risk ?? factor, treating to a non-HDL-C goal of <100 mg/dL ?? (LDL-C of <70 mg/dL) is considered a therapeutic ?? option. Triglycerides 124 <150 mg/dL [facility] 07/08/2021 2:00 PM EST us Damian Bauman LAB BLOOD ORDERABLES Final Resul t [facility] [address] [place] [address], * THINPREP TIS PAP AND HPV mRNA E6/E7 REFLEX HPV 16,18/45 (07/01/2021 2:47 PM EST) Clinical Information: Z124 [facility] COMMENT SEE COMMENT FOUNDAT[facility] ON [...] has been evaluated with computer assisted technology. [facility] Drafter Topographical: SEE COMMENT [facility] Comment: CXP, CT(ASCP) CT screening location: [address] ??[phone] HPV nRNA E6/E7 Not Detected Not Detected [facility] Comment: Methodology: Professor Of Environmental Science-Mediated Amplification This assay detects E6/E7 viral messenger RNA (mRNA) from 14 high-risk HPV types (16,18,31,33,35,39,45,51,52,56,58,59,66,68). ? The analytical performance characteristics of this assay have been determined by [employer]. The modifications have not been cleared or approved by the FDA. This assay has been validated pursuant to the CLIA regulations and is used for clinical purposes. ?? For additional information, please refer to http://education.[employer]/faq/AZA386x7 (This link if provided for information/ educational purposes only.) Interpretation/Re sult: Negative for intraepithelial lesion or malignancy. [facility] LMP: NONE [facility]IV[facility] Prev. BX: NONE [facility] Prev. PAP: NONE [facility]IVEN [facility]OUND[facility] ON LAB SYSTEM SOURCE: Cervix [facility] Statement Of Adequacy: SEE COMMENT [facility] Comment: Satisfactory for evaluation. Endocervical/transformation zone component absent. Age and/or menstrual status not provided 07/01/2021 2:47 PM EST Kizzy Brown CNM LAB PATHOLOGY ORDERABLES Final Result [facility] [address] * Hm Colonoscopy (11/29/2020 11:46 AM EDT) Colonoscopy Normal [...] Most Recently Relevant to Health Maintenance Insurance [facility] STAND ADULT Care Teams Cambering Machine Operator Relationship Specialty Start Date End Date Name, MD Damian [address] [place] [address] PCP - General Family Medicine 05/28/17 Danny Overton FNP [address] [place], [place] Nurse Practitioner Family Medicine 06/29/23
--- OUTSIDE RECORDS SUMMARY | 2024-10-16 16:39 | XMS_ITS | Encounter Summary ---
Author Organization [employer] Address 75 [facility] 7t [place] [address] Care Team Providers Care Director Of Retail Operations Name Role Phone Name, Damian MASON Primary Care Provider [phone] Danny Overton Unavailable Unavailable Reason for Visit * Reason Onset Date Comments Complain 09/24/2023 Encounter Details Date Type Department Care Team (Late st Contact Info) Description 09/24/2023 Telephone [facility] MEDICINE [address] [place], [place] [phone] Name, MD Damian [address] [place], [place] [phone] Complain Social History Tobacco Use Types Packs/Day [...] incident that happened on 09/24/23 with the [facility] department pt wishes to give a complain in regards to the incident. Please contact pt @ [phone] documented in this encounter Plan of Treatment Upcoming Encounters Date Type Department Care Team (Late st Contact Info) Description 11/02/2024 10:00 AM EDT Office Visit [facility] [address] [place], [place] [phone] Negrito Romeo BDS [address] [place], [place] [phone] 12/19/2024 4:00 PM EDT Office Visit [facility] MEDICINE [address] [place] [address] [phone] Name, MD Damian [address] [place] [address] documented as of this encounter Visit Diagnoses Not on filedocumented in this encounter Additional Health Concerns Assessment Noted Time PHQ-9 Depression Total Score: 16 024 9:26 AM EST documented as of this encounter Care Teams Director Of Retail Operations Relationship Specialty Start Date End Date Name, MD Damian [address] [place] [address] PCP - General Family Medicine 05/28/17 Danny Overton FNP [address] [place] [address] Nurse Practitioner Family Medicine 06/29/23 documented as of this encounter
--- OUTSIDE RECORDS SUMMARY | 2024-10-16 16:40 | XMS_ITS | Encounter Summary ---
Author Organization [employer] Address [address] [place] [address] 7 [place] [address] Care Team Providers Care Can Striper Name Role Phone Name, Damian MASON Primary Care Provider [phone] Danny Overton Unavailable Unavailable Reason for Visit * Reason Comments Med Refill Encounter Details Date Type Department Care Team (Late Contact Info) Description 02/05/2023 Refill [facility] [address] [place] [address] [phone] Danny Overton FNP Social History Tobacco Use [...] 11/02/2024 10:00 AM EDT Office Visit [facility] [address] [place] [address] [phone] Negrito Romeo BDS [address] [place] [address] [phone] 12/19/2024 4:00 PM EDT Office Visit [facility] MEDICINE [address] [place] [address] Name, MD Damian [address] [place] [address] documented as of this encounter Visit Diagnoses Not on filedocumented in this encounter Additional Health Concerns Assessment Noted Time PHQ-9 Depression Total Score: 1 01/19/20 23 10:36 AM EDT documented as of this encounter Care Teams Can Striper Relationship Specialty Start Date End Date Name, MD Damian [address] [place] [phone] PCP - General Family Medicine 05/28/17 Danny Overton FNP [address] [place] [phone] Nurse Practitioner Family Medicine 06/29/23 documented as of this encounter
--- OUTSIDE RECORDS SUMMARY | 2024-10-16 16:40 | XMS_ITS | Encounter Summary ---
Author Organization [employer] Address 75 [facility] 7t [place] [address] Care Team Providers Care Pumper Brewery Name Role Phone Name, Damian MASON Primary Care Provider [phone] Danny Overton Unavailable Unavailable Reason for Visit * Reason Comments Med Refill Encounter Details Date Type Department Care Team ([facility] Contact Info) Description 01/13/[address] [facility] MEDICINE [address] [place] [address] Danny Overton FNP Social History Tobacco Use [...] Upcoming Encounters Date Type Department Care Team ([facility] Contact Info) Description 11/02/2024 10:00 AM EDT Office Visit [facility] DENTAL [address] [place] [address] [phone] Negrito Romeo BDS [address] [place] [address] 12/19/2024 4:00 PM EDT Office Visit [facility] MEDICINE [address] [place] [phone] Name, MD Damian [address] [place] [phone] documented as of this encounter Visit Diagnoses Not on filedocumented in this encounter Additional Health Concerns Assessment Noted Time PHQ-9 Depression Total Score: 11 023 10:47 AM EDT documented as of this encounter Care Teams [employer] Brewery Relationship Specialty Start Date End Date Name, MD Damian [address] [place] [phone] PCP - General Family Medicine 05/28/17 Danny Overton FNP [address] [place] [phone] Nurse Practitioner Family Medicine 06/29/23 documented as of this encounter
--- OUTSIDE RECORDS SUMMARY | 2024-10-16 16:40 | XMS_ITS | Encounter Summary ---
Author Organization [employer] Address 75 [facility] 7t [place] [address] Care Team Providers Care Mineralogy Professor Name Role Phone Name, Damian MASON Primary Care Provider [phone] Danny Overton Unavailable Unavailable Encounter Details Date Type Department Care Team ([facility] Contact Info) Description 01/07/2023 Abstract [facility] MEDICINE [address] [place] [address] Name, MD Damian [address] [place] [address] Social History Tobacco Use Types Packs/Day Years [...] Upcoming Encounters Date Type Department Care Team ([facility] Contact Info) Description 11/02/2024 10:00 AM EDT Office Visit [facility] [address] [place] [phone] Negrito Romeo, BDS [address] [place], [place] [phone] 12/19/2024 4:00 PM EDT Office Visit [facility] MED[facility] [address] [place] [address] Name, MD Damian [address] [place] [address] documented as of this encounter Procedures Procedure [...] documented as of this encounter Care Teams Mineralogy Professor Relationship Specialty Start Date End Date Name, [place] [address] PCP - General Family Medicine 05/28/17 Danny Overton FNP [address] [place] [phone] Nurse Practitioner Family Medicine 06/29/23 documented as of this encounter
[2024-10-16 17:16] LABS: Creatinine Urine 125.03 mg/dL; Microalbum/Creatinine Ratio Ur 9.5 ug/mg cr (<30)
== END 2024-10-16 14:34 | disposition home or self-care (01) ==
LOC: HO.HHCL 14:33
PROVIDERS: Visit Provider Internal Medicine Geriatric Medicine
DX: I10 Essential (primary) hypertension (principal); E11.65 Type 2 diabetes mellitus with hyperglycemia
CPT/HCPCS: 82043; 82570